=== PATIENT | male | born 1940 | race Caucasian/White ===

== ENCOUNTER 2019-04-02 19:49 | Inpatient (IN) | payer MEDICARE ==
[~2019-04-02] VITALS: Ht 165.1 cm; Wt 60.8 kg
--- NOTE | 2019-04-02 19:49 | NUR ---
ED Nurse Note: TORIE JJ 68 FROM HOME C/O FALL. HX OF FREQUENT FALLS. INJURY TO BILATERAL ARMS.
--- NOTE | 2019-04-02 20:00 | NUR ---
ED Nurse Note: IV ACCESS ESTABLISHED. BLOOD COLLECTED; SENT DOWN TO LAB.
--- NOTE | 2019-04-02 20:18 | NUR ---
ED Nurse Note: PT PRESENTS WITH SKIN TEARS ON BILATERAL ARMS AND ABRASION ON RIGHT KNEE.
[2019-04-02 20:24] VITALS: BP 142/83
[2019-04-02 20:33] LABS: BASOPHILS % (AUTO) 0.7 % (0.0-2.0); EOSINOPHILS % (AUTO) 1.3 % (0.0-3.0); HEMATOCRIT 32.3 % (42.0-52.0); HEMOGLOBIN 11.3 G/DL (14.2-18.0); MEAN CORPUSCULAR VOLUME 91 FL (80-99); MONOCYTES % (AUTO) 8.5 % (1.0-10.0); NEUTROPHILS % (AUTO) 71.5 % (45.0-75.0); PLATELET COUNT 137 K/UL (150-450); RED BLOOD COUNT 3.56 M/UL (4.70-6.10); RED CELL DISTRIBUTION WIDTH 11.8 % (11.6-14.8); WHITE BLOOD COUNT 5.7 K/UL (4.8-10.8)
--- NOTE | 2019-04-02 20:43 | Emergency Room Report ---
History of Present Illness General Chief Complaint: Multiple Trauma/Fall Source: Patient Present Illness HPI Patient is a 78-year-old male brought in by EMS after multiple falls. Patient had reportedly fallen 2 times at a friend's [employer]. He reportedly struck his head in the bathtub. He had prior history of Parkinson's dementia. Patient states that he has fallen 5 times in the past 1 day. He states he lives alone. He denies any anticoagulant use. Patient is followed by neurologist as well as urologist and a primary care physician. Patient states his primary care physician is Dr. Sandoval reports having a written recent tetanus vaccine. Allergies: Coded Allergies: No Known Allergies (Unverified , 04/02/19) Patient History Past Medical History: see triage record Reviewed Nursing Documentation: PMH: Agreed; PSxH: Agreed Nursing Documentation-PMH Past Medical History: No History, Except For Hx Hypertension: Yes Review of Systems All Other Systems: negative except mentioned in HPI Physical Exam Vital Signs Date Time Temp Pulse Resp B/P (MAP) Pulse Ox O2 Delivery O2 Flow Rate FiO2 04/02/19 19:33 97.5 84 14 142/83 (102) 99 Room Air Sp02 EP Interpretation: reviewed, normal General Appearance: normal inspection, well appearing, no apparent distress, GCS 15, Chronically Ill Head: atraumatic ENT: normal ENT inspection, hearing grossly normal, normal voice Neck: normal inspection, supple, no bony tend, limited range of motion Respiratory: normal inspection, lungs clear, normal breath sounds, no respiratory distress, no retraction, no wheezing Cardiovascular #1: regular rate, rhythm, no edema Gastrointestinal: normal inspection, normal bowel sounds, non tender, soft, no guarding, no hernia Genitourinary: no CVA tenderness Musculoskeletal: decreased range of motion - decreased rOM of neck and left shoulder Neurologic: normal inspection, alert, oriented x3, responsive, head tennis professional III-XII nml as tested, speech normal, other - muscular atrophy bilateral quadriceps Psychiatric: normal inspection, judgement/insight normal, mood/affect normal Skin: normal color, other - multiple superficial skin tears to extremities Medical Decision Making Diagnostic Impression: Primary Impression: Fall Additional Impressions: Cervical spine arthritis Parkinson disease Frequent falls Skin tear of left upper extremity Skin tear of right elbow without complication Dehydration ER Course Patient is a 78-year-old male brought in by EMS for fall. Differential diagnosis include was not limited to neuromuscular weakness, ataxia, cervical spine stenosis, Parkinson's dementia among others. Because of complexity of patient's case laboratory testing and imaging studies were ordered. Patient was noted to have some frequent falling episodes and states that he has had 5 falls in the past day. Patient states that he fell twice today at a libertarian including one episode where he struck his head. Patient was noted to have some skin tears to his upper extremities. He additionally had some injury to his right knee.CT of cervical spine read by radiology showed no acute fracture or traumatic subluxation of the cervical spine there is multilevel degenerative changes noted most prominently at C4C5 mild reversal of cervical lordosis may related to positioning degenerative changes or muscle spasm. CT of the head without contrast read by radiology showed no evidence of acute intracranial hemorrhage skull fracture or acute intracranial abnormality mild atrophy and chronic small vessel disease was noted. Chest x-ray 1 view interpreted by me showed normal cardiac size without evident infiltrate and some aortic calcification. There is no evident effusion. Patient was noted to have multiple falls and does not appear to be safe for discharge. Patient will be admitted to the hospital for further evaluation of unsteady gait. Patient will be admitted to Dr. Pate for inpatient management due to panel physician. Labs Test 04/02/19 20:00 04/02/19 20:15 White Blood Count 5.7 K/UL (4.8-10.8) Red Blood Count 3.56 M/UL (4.70-6.10) Hemoglobin 11.3 G/DL (14.2-18.0) Hematocrit 32.3 % (42.0-52.0) Mean Corpuscular Volume 91 FL (80-99) Mean Corpuscular Hemoglobin 31.7 PG (27.0-31.0) Mean Corpuscular Hemoglobin Concent 35.0 G/DL (32.0-36.0) Red Cell Distribution Width 11.8 % (11.6-14.8) Platelet Count 137 K/UL (150-450) Mean Platelet Volume 7.7 FL (6.5-10.1) Neutrophils (%) (Auto) 71.5 % (45.0-75.0) Lymphocytes (%) (Auto) 18.0 % (20.0-45.0) Monocytes (%) (Auto) 8.5 % (1.0-10.0) Eosinophils (%) (Auto) 1.3 % (0.0-3.0) Basophils (%) (Auto) 0.7 % (0.0-2.0) Prothrombin Time 10.3 SEC (9.30-11.50) Prothromb Time International Ratio 1.0 (0.9-1.1) Activated Partial Thromboplast Time 26 SEC (23-33) Sodium Level 142 MMOL/L (136-145) Potassium Level 3.8 MMOL/L (3.5-5.1) Chloride Level 104 MMOL/L (98-107) Carbon Dioxide Level 32 MMOL/L (21-32) Anion Gap 7 mmol/L (5-15) Blood Urea Nitrogen 30 mg/dL (7-18) Creatinine 1.1 MG/DL (0.55-1.30) Estimat Glomerular Filtration Rate mL/min (>60) Glucose Level 117 MG/DL (74-106) Calcium Level 8.9 MG/DL (8.5-10.1) Total Bilirubin 1.1 MG/DL (0.2-1.0) Direct Bilirubin 0.3 MG/DL (0.0-0.3) Aspartate Amino Transf (AST/SGOT) 44 U/L (15-37) Alanine Aminotransferase (ALT/SGPT) 15 U/L (12-78) Alkaline Phosphatase 77 U/L (46-116) Troponin I 0.016 ng/mL (0.000-0.056) Total Protein 6.3 G/DL (6.4-8.2) Albumin 3.7 G/DL (3.4-5.0) Globulin 2.6 g/dL Albumin/Globulin Ratio 1.4 (1.0-2.7) Thyroid Stimulating Hormone (TSH) 1.763 uiU/mL (0.358-3.740) Urine Color Yellow Urine Appearance Cloudy Urine pH 8 (4.5-8.0) Urine Specific [place] 1.010 (1.005-1.035) Urine Protein Negative (NEGATIVE) Urine Glucose (UA) Negative (NEGATIVE) Urine Ketones Negative (NEGATIVE) Urine Blood 4+ (NEGATIVE) Urine Nitrite Negative (NEGATIVE) Urine Bilirubin Negative (NEGATIVE) Urine Urobilinogen Normal MG/DL (0.0-1.0) Urine Leukocyte Esterase Negative (NEGATIVE) Urine RBC 15-20 /HPF (0 - 0) Urine WBC 0 /HPF (0 - 0) Urine Squamous Epithelial Cells None /LPF (NONE/OCC) Urine Amorphous Sediment Many /LPF (NONE) Urine Bacteria Few /HPF (NONE) Last Vital Signs Date Time Temp Pulse Resp B/P (MAP) Pulse Ox O2 Delivery O2 Flow Rate FiO2 04/02/19 20:24 97.5 73 14 142/83 99 Room Air Status: unchanged Disposition: ADMITTED INPATIENT Condition: Stable Raf Pack MD Apr 02, 2019 20:43
[2019-04-02 20:50] LABS: ANION GAP 7 mmol/L (5-15); BLOOD UREA NITROGEN 30 mg/dL (7-18); CALCIUM 8.9 MG/DL (8.5-10.1); CARBON DIOXIDE 32 MMOL/L (21-32); CHLORIDE 104 MMOL/L (98-107); CREATININE 1.1 MG/DL (0.55-1.30); POTASSIUM 3.8 MMOL/L (3.5-5.1); SODIUM 142 MMOL/L (136-145)
--- NOTE | 2019-04-02 20:55 | NUR ---
ED Nurse Note: URINE COLLECTED; SENT DOWN TO LAB.
[2019-04-02 21:03] LABS: ALANINE AMINOTRANSFERASE 15 U/L (12-78); ALBUMIN 3.7 G/DL (3.4-5.0); ALBUMIN/GLOBULIN RATIO 1.4 (1.0-2.7); ALKALINE PHOSPHATASE 77 U/L (46-116); ASPARTATE AMINO TRANSFERASE 44 U/L (15-37); BILIRUBIN,TOTAL 1.1 MG/DL (0.2-1.0)
[2019-04-02] MEDS ORDERED: ATORVASTATIN CA10 MG ORAL (21:06)
[2019-04-02] MEDS ORDERED: COZAAR25 MG ORAL (21:06)
[2019-04-02] MEDS ORDERED: ASPIR 8181 MG ORAL (21:06)
[2019-04-02] MEDS ORDERED: ELIQUIS2.5 MG PO (21:06)
[2019-04-02 21:08] LABS: BILIRUBIN,DIRECT 0.3 MG/DL (0.0-0.3)
--- NOTE | 2019-04-02 21:24 | NUR ---
ED Nurse Note: UPON REASSESSMENT, LEFTHIP ABRASION NOTED. WOUND PHOTOS TAKEN AND UPLOADED.
[2019-04-02 21:27] LABS: APPEARANCE,URINE CLOUDY; BILIRUBIN, URINE NEGATIVE (NEGATIVE); GLUCOSE, URINE (UA) NEGATIVE (NEGATIVE); KETONES,URINE NEGATIVE (NEGATIVE); LEUKOCYTE ESTERASE ,URINE NEGATIVE (NEGATIVE); NITRITE,URINE NEGATIVE (NEGATIVE); PH,URINE 8 (4.5-8.0); PROTEIN,URINE NEGATIVE (NEGATIVE); UROBILINOGEN,URINE NORMAL MG/DL (0.0-1.0)
[2019-04-02 21:29] LABS: COLOR,URINE YELLOW
[2019-04-02 22:15] VITALS: BP 137/71
--- NOTE | 2019-04-02 22:28 | NUR ---
ED Nurse Note: REPORT GIVEN TO JAYLENE THOMAS. ROOM NOT READY. RECEIVING RN WILL CALL BACK WITHIN THE HOUR. NURSING PLASTIC MOULD MAKER AND VICTIMS ADVOCATE CLERK/SPECIALIST AWARE.
--- NOTE | 2019-04-02 22:45 | NUR ---
TRANSFER TO FLOOR: Patient transferred to [facility] as ordered, per MD KENNETH. Report given to JAYLENE THOMAS. PATIENT AO4. NAD. VSS. ENDORSED WOUNDS AND FALL RISK TO RECEIVING RN. BELONGINGS LIST COMPLETED WITH RECEIVING RN.
--- NOTE | 2019-04-02 23:00 | NUR ---
NURSE NOTES: PATIENT ADMITTED FROM ER WITH ADM DX OF FREQUENT FALL UNDER PRIMARY DR COOPER. REPORT RECEIVED FROM TRAINMASTER KARIN SANTACRUZ. PLACED PATIENT NEXT TO NURSING STATION. PATIENT IS A/O X4, ON RA, NO SOB, NO ACUTE DISTRESS, DENIES PAIN. RFA IV INTACT, PATENT, SALINE LOCK. NOTED ABRASION ON L HIP AND R KNEE. SKIN TEAR ON BUE. DSG DRY AND INTACT. BELONGINGS CHECKED. ORIENTED PATIENT TO SURROUNDINGS. BED IN LOWEST POSITION, LOCKED, ALARMS ON. CALL LIGHT IN REACH.
[2019-04-03] VITALS: BP 122/69
[2019-04-03 04:00] VITALS: BP 124/68
[2019-04-03 06:35] LABS: BASOPHILS % (AUTO) 1.1 % (0.0-2.0); HEMATOCRIT 30.9 % (42.0-52.0); HEMOGLOBIN 10.7 G/DL (14.2-18.0); LYMPHOCYTES % (AUTO) 24.6 % (20.0-45.0); MEAN CORPUSCULAR VOLUME 96 FL (80-99); MONOCYTES % (AUTO) 12.2 % (1.0-10.0); NEUTROPHILS % (AUTO) 58.1 % (45.0-75.0); PLATELET COUNT 117 K/UL (150-450); RED BLOOD COUNT 3.23 M/UL (4.70-6.10); RED CELL DISTRIBUTION WIDTH 12.3 % (11.6-14.8); WHITE BLOOD COUNT 3.8 K/UL (4.8-10.8)
--- NOTE | 2019-04-03 07:35 | NUR ---
HAND-OFF: Report given to Beth MARIEE.
--- NOTE | 2019-04-03 08:00 | NUR ---
NURSE NOTES: Patient is awake and alert and oriented ,respirations are unlabored. patient sitting up in bed and eating breakfast.HOB is elevated. Pharmacy called earlier to verify if patient takes medication called Eliquis.Patient state he does not take Eliquis.CANOPY STRINGER Marlen here to see patient and going over patient history in patient room and noted that patient state he does not take Eliquis.Bed alarm is on,call light within reach.
--- NOTE | 2019-04-03 08:20 | NUR ---
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 DEHYDRATION VS: BP 142/83, P 84, T 97.5, RR 14, SpO2 99 RBC 3.56, H&H 11.3/32.3, BUN 30 IS:NS 500ml IV ADMITTED TO MED/SURG DCP:RETURN HOME
[2019-04-03] MEDS: Aspirin EC 81mg tab ORAL SCH (08:35)
[2019-04-03] MEDS: Losartan 25mg tab ORAL SCH (08:35)
[2019-04-03 08:39] VITALS: BP 124/78
[2019-04-03] MEDS ORDERED: Eliquis 2.5mg tablet ORAL SCH (09:00)
--- NOTE | 2019-04-03 10:10 | NUR ---
PT EVALUATION NOTE Patient seen for initial evaluation, see complete evaluation for details. Patient presents with generalized weakness and impaired balance which affects patient's ability to perform mobility tasks. Patient requires min assist for bed mobility, transfers and ambulation 5 ft with FWW with poor balance. Patient will benefit from skilled inpatient PT intervention to address strength, balance, safety and functional mobility. Recommend discharge to ARU/SNF for continued rehab vs home with home PT depending on patient's progress once medically cleared by MD. Recommend assistance at home as patient lives alone in a 2 story house. Patient has a SPC and 4 wheeled walker at home. Addendum: 04/03/19 at 1137 by LAISHA CASTILLO PT Amended: Links added.
--- NOTE | 2019-04-03 10:36 | Diagnostic Imaging Report ---
Indication: Head trauma headache Technique: Contiguous 5 mm thick transaxial imaging of the head obtained in a Siemens Sensation [address] scanner. Soft tissue and bone windows generated. Automatic Exposure Control was utilized. Total Dose length Product (DLP): 1305.[address] Dose Index Volume (CTDIvol): 70.38 mGy Comparison: none Findings: There is mild prominence of the ventricles, basal cisterns, and cerebral sulci consistent with atrophy. Mild, nonspecific, white matter hypoattenuation is noted throughout the brain consistent with chronic small vessel disease. There is no midline shift, edema, acute hemorrhage, mass effect, or abnormal extra-axial fluid collections. Bones are unremarkable. Bilateral cataract surgery noted. Impression: No acute intracranial bleed, mass effect or edema. Mild atrophy of the brain. Nonspecific white matter hypoattenuation probably due to chronic small vessel disease. [facility] has communicated the preliminary results to the Emergency Department. Their findings are largely concordant with this report. The CT scanner at [facility] is accredited by the [employer] and the scans are performed using dose optimization techniques as appropriate to a performed exam including Automatic Exposure control.
--- NOTE | 2019-04-03 10:49 | Diagnostic Imaging Report ---
Indication: Neck pain. Technique: Continuous helical imaging of the cervical spine was obtained transaxially from the skull base to the upper thoracic spine. 2-D coronal and sagittal reformatted images were obtained. Automatic Exposure Control was utilized. Total Dose length Product (DLP): 255.[address] Dose Index Volume (CTDIvol): 12.59 mGy Comparison: None Findings: There is no acute fracture or malalignment identified. There is no soft tissue swelling identified. Moderate uncovertebral arthritis is demonstrated at multiple levels. Some of the intervertebral discs show narrowing and osteophytes. There is a mild anterolisthesis at C2-3. Minimal retrolisthesis noted at C4-5 and C5-6. Multilevel foraminal stenosis demonstrated due to uncovertebral spur formation. Impression: No acute injury Moderate spondylosis The CT scanner at [facility] is accredited by the [employer] and the scans are performed using dose optimization techniques as appropriate to a performed exam including Automatic Exposure control.
[2019-04-03 12:31] VITALS: BP 129/68
--- NOTE | 2019-04-03 12:32 | Consultation ---
Consult Note Consult Note Hematology/ Oncology Consultation Date of Consultation: 04/03/2019 Tiki MD: Dr. Dulce Cooney Reason For Referral: Leukopenia History of Present Illness: This is a Male 78-year-old male brought in by EMS after multiple falls. Patient had reportedly fallen 2 times at a friend's alliance party. He reportedly struck his head in the bathtub. He had prior history of Parkinson's dementia, Prostate cancer, Dementia, HTN. Patient states that he has fallen 5 times in the past 1 day. He states he lives alone. He denies any anticoagulant use, however Eliquis was reported in his med recon list. Patient is followed by neurologist as well as urologist for his prostate ca Dr.M. Lemus in [place]. He has not received Chemo or radiation and he does not recall his last PSA level. He states he was diagnosed 1 year ago. Heme/ Onc was consulted for low wbc count, pt also has thrombocytopenia. Past Medical History: Prostate CA, Dementia, Parkinsons disease, multiple falls Past Surgical History: Prostate Surgery Family History: Non Contributory Social History: Denies smoking tobacco, no etoh and no drug abuse, Allergies: NKDA Review of Systems All Other Systems: negative except mentioned in HPI Physical Exam General Appearance: , Chronically Ill appearing multiple dressings on BUE Head: atraumatic ENT: normal ENT inspection, hearing grossly normal, normal voice Neck: normal inspection, supple, no bony tend, limited range of motion Respiratory: normal inspection, lungs clear, normal breath sounds, no respiratory distress, no retraction, no wheezing Cardiovascular: regular rate, rhythm, no edema Gastrointestinal: normal inspection, normal bowel sounds, non tender, soft, no guarding, no hernia Genitourinary: no CVA tenderness Musculoskeletal: decreased range of motion - decreased rOM of neck and left shoulder Neurologic: normal inspection, alert, oriented x3, responsive, power systems engineer III-XII nml as tested, speech normal, other - muscular atrophy bilateral quadriceps Psychiatric: normal inspection, judgement/insight normal, mood/affect normal Skin: normal color, other - multiple superficial skin tears to extremities and steristrips to left foreaem Assessment/Plan ASSESSMENT AND REC'S 1. Prostate Ca --> followed by outpatient Urologist Santos Lr, I have called his office and have requested last prognosis requiring treatment and last PSA level. --> We will check PSA level --> Pt reports no history of chemo or radiation, he does report having prostate surgery unable to recall details. 2. Thrombocytopenia - potential causes multifactorial, evaluate liver and viral etiologies to begin, also could be related to underlying medications patient has received. --> Hep panel and HIV ordered --> US abd to evaluate for cirrhosis and hsm ordered --> Peripheral smear ordered to evaluate for blasts /schistocytes --> abx and other meds have been reviewed --> ok for ppx if plt >50k w/ either heparin or lovenox --> Transfuse if Plt < 20k and fever, or if Plt < 10k without fever 3. Leukopenia--multiple etiologies could be related to Prostate Ca or underlying liver disease, medication-induced, --> peripheral smear has been ordered --> Medications have been reviewed --> Continue to monitor for improvement, trend cbc --> Hep panel and HIV have been ordered --> US abd ordered to r/o cirrhosis and hepatosplenomegaly --> reverse isolation if ANC is <2000 --> Give neupogen if ANC <1000 4. Anemia of chronic disease (or of iron deficiency) due to underlying chronic medical issues, multifactorial --> Anemia workup has been ordered, --> No evidence of hemolysis is noted, peripheral smear has been reviewed. --> Hgb goal >7. Transfuse prn. --> HGB trend 10.7 --> Epogen or iron at this time is not particularly indicated --> Medications have been reviewed, med recon Eliquis but patient denies taking eliquis also have discussed with bedside RN 5. Parkinsons Disease 6. Dementia 7. Multiple Falss --> CT head no actue pathology noted 8. Moderate spondylosis --> CT Cervical Spine reviewed The timing of this note does not necessarily reflect the time of the patient was seen. GREATLY APPRECIATE CONSULTATION Rupinder Gee NP Apr 03, 2019 12:32
--- NOTE | 2019-04-03 12:38 | Diagnostic Imaging Report ---
Indication: Dyspnea Comparison: None A single view chest radiograph was obtained. Findings: No definite infiltrate or pulmonary vascular congestion identified. The heart is normal size. The aorta is mildly enlarged consistent with atherosclerotic vascular disease. The bones are osteopenic. Impression: No acute disease
[2019-04-03 16:00] VITALS: BP 126/80
--- NOTE | 2019-04-03 16:03 | NUR ---
Social Service Note Patient with multiple falls at home. GALO spoke with patient's friend Tyesha Chavez [phone] who was present when EMS was called. Per Tyesha patient has never been and has no children. Patient has been involved with the a [employer] group for several years and monthly they have a [employer] tournament. Patient's friend Tyesha states when she went to patient's home to pick him up she noticed blood in various rooms in the house. Patient has a two story home. Patient admits to falling multiple times over the course of several weeks. A friend has purchased him a FWW a week ago. Patient was to have an interview with a caregiver agency today Wednesday to determine level of service he would require at home. While at the [employer] patient fell 3 times and ambulance was called. Tyesha states but takes multiple medications for Parkinson's disease and prostate cancer. Tyesha also provided the phone number of Phillip Loaiza [phone] a long time friend who is assisting patient in obtaining an executor of his estate. Message left. Tyesha states the group have been discussing SNF placement and assisted living. Patient has obtained information on [facility]. Patient is anticipated to discharge to SNF for continued rehab upon discharge. Will continue to monitor and assist as needed.
--- NOTE | 2019-04-03 16:54 | Diagnostic Imaging Report ---
Indication: Abdominal pain Technique: Grayscale and duplex Doppler imaging of the abdomen performed. Comparison: None Findings: The liver is notable for cyst in the left lobe measuring 1.2 cm. Doppler interrogation of the main portal vein shows patency with hepatopedal, monophasic flow. There is no biliary ductal dilatation identified. The CBD measures 2.5 mm. The spleen is unremarkable. Gallbladder is unremarkable. No gallstones or wall thickening identified. Sonographic Palacios's sign was negative per technologist. There demonstrated part of the pancreas, aorta and IVC show no definite abnormalities. Both kidneys appear unremarkable. There is no hydronephrosis. There is a small left renal cyst. IMPRESSION: No acute findings identified. Liver and left renal cyst
--- NOTE | 2019-04-03 19:40 | NUR ---
HAND-OFF: Report given to James MARIEE.
--- NOTE | 2019-04-03 19:56 | NUR ---
NURSE NOTES: Patient resting,sitting up in bed ,bed alarm on ,call light within reach.
[2019-04-03 20:00] VITALS: BP 121/74
--- NOTE | 2019-04-03 20:00 | NUR ---
NURSE NOTES: Received a patient sitting in bed. Patient AAO x 4, on room air. No acute distress noted at this time. IV R AC 18G intact. Patient has multiple skin tears both R, L arms and abrasion L hip and knee. Patient stated "Theses tears are from frequent falls." Bed alarm on, lowest position, locked, side rails up x 2, call light within reach. Will continue to monitor.
--- NOTE | 2019-04-03 20:30 | NUR ---
NURSE NOTES: Patient stated that he takes other medications at home that was not continued here. Patient is unsure of dosage of these medications. Called his pharmacy [facility] at and . Able to obtain only some of his medications that were dispensed recently: Vesicare 10mg Daily, myrbetriq 50mg daily, losartan 50mg 2xdaily, carbidopa/levodopa/encatapone 37.5/150/200 4x daily. Medication reconciliation updated as is. Called Dr. Cooney's exchange for orders to continue these medications. Awaiting call back.
--- NOTE | 2019-04-03 21:06 | History and Physical ---
History of Present Illness General Date patient seen: Apr 03, 2019 Time patient seen: 10:00 Reason for Hospitalization: Multiple Trauma/Fall Present Illness HPI 78 year old male with PMH of parkinsons, dementia, HTN, prostate CA presented with complaints of multiple falls. Pt states he had fallen 2 times at a friends [employer] over the weekend, states he struck his head on a bathtub, - LOC. Pt states he has fallen at least 5 times over past week. Pt lives by himself in a 2 story home and has no help. Pt would like to ask his friends for help vs bring placed in SNF. pt denies fevers, chills, N/V/C/D, urinary complaints or abdominal complaints. Patient is followed by neurologist as well as urologist for his prostate ca Dr.M. Lemus in [place]. He has not received Chemo or radiation and he does not recall his last PSA level. He states he was diagnosed 1 year ago. Heme/ Onc was consulted for low wbc count, pt also has thrombocytopenia. Allergies: Coded Allergies: No Known Allergies (Unverified , 04/02/19) Medication History Scheduled Aspirin* (Aspir 81*), 81 MG ORAL DAILY, (Reported) Atorvastatin Calcium* (Lipitor*), Unknown Dose ORAL BEDTIME, (Reported) Losartan Potassium* (Cozaar*), Unknown Dose ORAL DAILY, (Reported) Miscellaneous Medications Apixaban (Eliquis), Unknown Dose PO, (Reported) Patient History Healthcare decision maker Resuscitation status Full Code Advanced Directive on File Review of Systems Constitutional: Reports: no symptoms Eye: Reports: no symptoms ENT: Reports: no symptoms Respiratory: Reports: no symptoms Cardiovascular: Reports: no symptoms Gastrointestinal: Reports: no symptoms Genitourinary: Reports: no symptoms Musculoskeletal: Reports: no symptoms Skin: Reports: no symptoms Psychiatric: Reports: no symptoms Neurological: Reports: no symptoms Endocrine: Reports: no symptoms Physical Exam General Appearance: WD/WN, no apparent distress Lines, tubes and drains: peripheral HEENT: normocephalic, atraumatic, anicteric Neck: non-tender, normal alignment Respiratory/Chest: chest wall non-tender, lungs clear Cardiovascular/Chest: normal peripheral pulses Abdomen: normal bowel sounds, non tender, soft Extremities: normal range of motion Skin Exam: other - excoriations on b/l UE Neurologic: records tech II-XII grossly normal Musculoskeletal: normal muscle bulk Last 24 Hour Vital Signs Date Time Temp Pulse Resp B/P (MAP) Pulse Ox O2 Delivery O2 Flow Rate FiO2 04/03/19 16:00 98.0 70 18 126/80 (95) 98 04/03/19 12:31 97.6 69 18 129/68 (88) 98 04/03/19 09:00 Room Air 04/03/19 08:39 97.9 74 124/78 (93) 98 04/03/19 08:35 124/78 04/03/19 04:00 97.6 61 18 124/68 (86) 98 04/03/19 00:00 97.2 63 19 122/69 (86) 95 04/02/19 23:20 Room Air 04/02/19 22:46 97.5 66 14 137/71 99 Room Air 04/02/19 22:15 97.5 66 14 137/71 99 Room Air Intake and Output 04/02/19 04/03/19 19:00 07:00 Intake Total 370 ml Output Total 600 ml Balance -230 ml Intake Oral 370 ml Output Urine Total 600 ml Laboratory Tests Test 04/03/19 05:50 White Blood Count 3.8 K/UL (4.8-10.8) L Red Blood Count 3.23 M/UL (4.70-6.10) L Hemoglobin 10.7 G/DL (14.2-18.0) L Hematocrit 30.9 % (42.0-52.0) L Mean Corpuscular Volume 96 FL (80-99) Mean Corpuscular Hemoglobin 33.1 PG (27.0-31.0) H Mean Corpuscular Hemoglobin Concent 34.6 G/DL (32.0-36.0) Red Cell Distribution Width 12.3 % (11.6-14.8) Platelet Count 117 K/UL (150-450) L Mean Platelet Volume 9.5 FL (6.5-10.1) Neutrophils (%) (Auto) 58.1 % (45.0-75.0) Lymphocytes (%) (Auto) 24.6 % (20.0-45.0) Monocytes (%) (Auto) 12.2 % (1.0-10.0) H Eosinophils (%) (Auto) 4.0 % (0.0-3.0) H Basophils (%) (Auto) 1.1 % (0.0-2.0) Prostate Specific Antigen 0.85 ng/mL (0.13-4.0) Hepatitis A IgM Antibody Pending Hepatitis B Surface Antigen Pending Hepatitis B Core IgM Antibody Pending Hepatitis C Antibody Pending HIV-1 Antibody Pending HIV-2 Antibody Pending HIV (1&2) Antibody Rapid Preliminary positive Height (Feet): 5 Height (Inches): 5.00 Weight (Pounds): 135 Medications Current Medications Medications (Trade) Dose Ordered Sig/Radha Route PRN Reason Start Time Stop Time Status Last Admin Dose Admin Aspirin (Ecotrin) 81 mg DAILY ORAL 04/03/19 09:00 05/03/19 08:59 04/03/19 08:35 Atorvastatin Calcium (Lipitor) 10 mg BEDTIME ORAL 04/03/19 21:00 05/03/19 20:59 Losartan Potassium (Cozaar) 25 mg DAILY ORAL 04/03/19 09:00 05/03/19 08:59 04/03/19 08:35 Assessment/Plan Assessment/Plan: 78 year old male with PMH of parkinsons, HTN, and dementia presented with complaints of multiple falls. #Frequent falls -fall precautions -PT/OT -Likely will need placement #Recent head trauma -Head CT unremarkbale #HTN -Restart ENVIRONMENTAL REMEDIATION CONSULTANT meds as needed #Dementia -Neurology consulted Code: Lower In Supervisor of note may not reflect time of encounter Sharon De La Cruz MD Apr 03, 2019 21:06
[2019-04-03] MEDS ORDERED: CARBIDOPA-LEVO1 EA16 PO (21:39)
[2019-04-03] MEDS ORDERED: MYRBETRIQ50 MG PO (21:52)
[2019-04-03] MEDS ORDERED: VESICARE10 MG ORAL (21:52)
[2019-04-04] VITALS: BP 127/64
--- NOTE | 2019-04-04 00:10 | NUR ---
NURSE NOTES: Patient was assisted to commode, had normal/formed BM, stool collected and sent to lab.
[2019-04-04 04:00] VITALS: BP 134/70
--- NOTE | 2019-04-04 07:20 | NUR ---
HAND-OFF: Report given to JAYLENE Campos.
--- NOTE | 2019-04-04 07:37 | NUR ---
NURSE NOTES: Patient is awake and alert and oriented,respirations are unlabored.Patient sitting up in bed and eating breakfast.No complaints at this time.Call light within reach,bed alarm is on.
[2019-04-04 08:15] VITALS: BP 134/71
[2019-04-04] MEDS: Aspirin EC 81mg tab ORAL SCH (08:27)
[2019-04-04] MEDS: Losartan 25mg tab ORAL SCH (08:27)
[2019-04-04 12:00] VITALS: BP 128/71
[2019-04-04 16:00] VITALS: BP 142/90
--- NOTE | 2019-04-04 18:28 | Hematology/Onc Progress Note ---
Assessment/Plan Assessment/Plan Assessment/Plan ASSESSMENT AND REC'S 1. Prostate Ca --> followed by outpatient Urologist Santos Lr, I have called his office and have requested last prognosis requiring treatment and last PSA level. --> We will check PSA level --> Pt reports no history of chemo or radiation, he does report having prostate surgery unable to recall details. 2. Thrombocytopenia - potential causes multifactorial, evaluate liver and viral etiologies to begin, also could be related to underlying medications patient has received. --> Hep panel and HIV ordered --> US abd to evaluate for cirrhosis and hsm ordered --> Peripheral smear ordered to evaluate for blasts /schistocytes --> abx and other meds have been reviewed --> ok for ppx if plt >50k w/ either heparin or lovenox --> Transfuse if Plt < 20k and fever, or if Plt < 10k without fever 3. Leukopenia--multiple etiologies could be related to Prostate Ca or underlying liver disease, medication-induced, --> peripheral smear has been ordered --> Medications have been reviewed --> Continue to monitor for improvement, trend cbc --> Hep panel and HIV have been ordered --> US abd ordered to r/o cirrhosis and hepatosplenomegaly --> reverse isolation if ANC is <2000 --> Give neupogen if ANC <1000 4. Anemia of chronic disease (or of iron deficiency) due to underlying chronic medical issues, multifactorial --> Anemia workup has been ordered, --> No evidence of hemolysis is noted, peripheral smear has been reviewed. --> Hgb goal >7. Transfuse prn. --> HGB trend 10.7 --> Epogen or iron at this time is not particularly indicated --> Medications have been reviewed, med recon Eliquis but patient denies taking eliquis also have discussed with bedside RN 5. Parkinsons Disease 6. Dementia 7. Multiple Falss --> CT head no actue pathology noted 8. Moderate spondylosis --> CT Cervical Spine reviewed The timing of this note does not necessarily reflect the time of the patient was seen. GREATLY APPRECIATE CONSULTATION Subjective Allergies: Coded Allergies: No Known Allergies (Unverified , 04/02/19) Subjective 04/04: Pt is awake in bed resting, alert Objective Objective Current Medications Medications (Trade) Dose Ordered Sig/Radha Route PRN Reason Start Time Stop Time Status Last Admin Dose Admin Aspirin (Ecotrin) 81 mg DAILY ORAL 04/03/19 09:00 05/03/19 08:59 04/04/19 08:27 Atorvastatin Calcium (Lipitor) 10 mg BEDTIME ORAL 04/03/19 21:00 05/03/19 20:59 04/03/19 21:44 Carbidopa/Levodopa (Sinemet 25/100) 1.5 tab FOUR TIMES A DAY ORAL 04/04/19 18:00 05/04/19 17:59 Entacapone (Comtan) 200 mg FOUR TIMES A DAY ORAL 04/04/19 18:00 05/04/19 17:59 Losartan Potassium (Cozaar) 50 mg BID ORAL 04/04/19 18:00 05/04/19 17:59 Last 24 Hour Vital Signs Date Time Temp Pulse Resp B/P (MAP) Pulse Ox O2 Delivery O2 Flow Rate FiO2 04/04/19 16:00 97.9 74 18 142/90 (107) 99 04/04/19 12:00 97.8 66 18 128/71 (90) 98 04/04/19 09:00 Room Air 04/04/19 08:27 134/71 04/04/19 08:15 96.2 63 18 134/71 (92) 96 04/04/19 04:00 98.4 72 16 134/70 (91) 97 04/04/19 00:00 98.1 63 18 127/64 (85) 97 04/03/19 21:00 Room Air 04/03/19 20:00 98.0 70 18 121/74 (90) 96 04/03/19 16:00 98.0 70 18 126/80 (95) 98 04/03/19 12:31 97.6 69 18 129/68 (88) 98 04/03/19 09:00 Room Air 04/03/19 08:39 97.9 74 124/78 (93) 98 04/03/19 08:35 124/78 04/03/19 04:00 97.6 61 18 124/68 (86) 98 04/03/19 00:00 97.2 63 19 122/69 (86) 95 04/02/19 23:20 Room Air 04/02/19 22:46 97.5 66 14 137/71 99 Room Air 04/02/19 22:15 97.5 66 14 137/71 99 Room Air 04/02/19 20:24 97.5 73 14 142/83 99 Room Air 04/02/19 20:24 73 14 Room Air 04/02/19 19:33 97.5 84 14 142/83 (102) 99 Room Air Intake and Output 04/03/19 04/04/19 19:00 07:00 Intake Total 980 ml Balance 980 ml Intake Oral 980 ml # Voids 4 4 # Bowel Movements 1 2 Labs Test 04/02/19 20:00 04/02/19 20:15 04/03/19 05:50 04/04/19 03:00 White Blood Count 5.7 K/UL (4.8-10.8) 3.8 K/UL (4.8-10.8) Red Blood Count 3.56 M/UL (4.70-6.10) 3.23 M/UL (4.70-6.10) Hemoglobin 11.3 G/DL (14.2-18.0) 10.7 G/DL (14.2-18.0) Hematocrit 32.3 % (42.0-52.0) 30.9 % (42.0-52.0) Mean Corpuscular Volume 91 FL (80-99) 96 FL (80-99) Mean Corpuscular Hemoglobin 31.7 PG (27.0-31.0) 33.1 PG (27.0-31.0) Mean Corpuscular Hemoglobin Concent 35.0 G/DL (32.0-36.0) 34.6 G/DL (32.0-36.0) Red Cell Distribution Width 11.8 % (11.6-14.8) 12.3 % (11.6-14.8) Platelet Count 137 K/UL (150-450) 117 K/UL (150-450) Mean Platelet Volume 7.7 FL (6.5-10.1) 9.5 FL (6.5-10.1) Neutrophils (%) (Auto) 71.5 % (45.0-75.0) 58.1 % (45.0-75.0) Lymphocytes (%) (Auto) 18.0 % (20.0-45.0) 24.6 % (20.0-45.0) Monocytes (%) (Auto) 8.5 % (1.0-10.0) 12.2 % (1.0-10.0) Eosinophils (%) (Auto) 1.3 % (0.0-3.0) 4.0 % (0.0-3.0) Basophils (%) (Auto) 0.7 % (0.0-2.0) 1.1 % (0.0-2.0) Prothrombin Time 10.3 SEC (9.30-11.50) Prothromb Time International Ratio 1.0 (0.9-1.1) Activated Partial Thromboplast Time 26 SEC (23-33) Sodium Level 142 MMOL/L (136-145) Potassium Level 3.8 MMOL/L (3.5-5.1) Chloride Level 104 MMOL/L (98-107) Carbon Dioxide Level 32 MMOL/L (21-32) Anion Gap 7 mmol/L (5-15) Blood Urea Nitrogen 30 mg/dL (7-18) Creatinine 1.1 MG/DL (0.55-1.30) Estimat Glomerular Filtration Rate mL/min (>60) Glucose Level 117 MG/DL (74-106) Calcium Level 8.9 MG/DL (8.5-10.1) Total Bilirubin 1.1 MG/DL (0.2-1.0) Direct Bilirubin 0.3 MG/DL (0.0-0.3) Aspartate Amino Transf (AST/SGOT) 44 U/L (15-37) Alanine Aminotransferase (ALT/SGPT) 15 U/L (12-78) Alkaline Phosphatase 77 U/L (46-116) Troponin I 0.016 ng/mL (0.000-0.056) Total Protein 6.3 G/DL (6.4-8.2) Albumin 3.7 G/DL (3.4-5.0) Globulin 2.6 g/dL Albumin/Globulin Ratio 1.4 (1.0-2.7) Thyroid Stimulating Hormone (TSH) 1.763 uiU/mL (0.358-3.740) Urine Color Yellow Urine Appearance Cloudy Urine pH 8 (4.5-8.0) Urine Specific [place] 1.010 (1.005-1.035) Urine Protein Negative (NEGATIVE) Urine Glucose (UA) Negative (NEGATIVE) Urine Ketones Negative (NEGATIVE) Urine Blood 4+ (NEGATIVE) Urine Nitrite Negative (NEGATIVE) Urine Bilirubin Negative (NEGATIVE) Urine Urobilinogen Normal MG/DL (0.0-1.0) Urine Leukocyte Esterase Negative (NEGATIVE) Urine RBC 15-20 /HPF (0 - 0) Urine WBC 0 /HPF (0 - 0) Urine Squamous Epithelial Cells None /LPF (NONE/OCC) Urine Amorphous Sediment Many /LPF (NONE) Urine Bacteria Few /HPF (NONE) Prostate Specific Antigen 0.85 ng/mL (0.13-4.0) Hepatitis A IgM Antibody Negative (Negative) Hepatitis B Surface Antigen Negative (Negative) Hepatitis B Core IgM Antibody Negative (Negative) Hepatitis C Antibody <0.1 s/co ratio HIV (1&2) Antibody Rapid Preliminary positive Stool Occult Blood Negative (NEGATIVE) Height (Feet): 5 Height (Inches): 5.00 Weight (Pounds): 135 Objective Physical Exam General Appearance: , Chronically Ill appearing multiple dressings on BUE Head: atraumatic ENT: normal ENT inspection, hearing grossly normal, normal voice Neck: normal inspection, supple, no bony tend, limited range of motion Respiratory: normal inspection, lungs clear, normal breath sounds, no respiratory distress, no retraction, no wheezing Cardiovascular: regular rate, rhythm, no edema Gastrointestinal: normal inspection, normal bowel sounds, non tender, soft, no guarding, no hernia Genitourinary: no CVA tenderness Musculoskeletal: decreased range of motion - decreased rOM of neck and left shoulder Neurologic: normal inspection, alert, oriented x3, responsive, consultative sales associate III-XII nml as tested, speech normal, other - muscular atrophy bilateral quadriceps Psychiatric: normal inspection, judgement/insight normal, mood/affect normal Skin: normal color, other - multiple superficial skin tears to extremities and steristrips to left foreaem Francis Keane MD Apr 04, 2019 18:28
[2019-04-04] MEDS: Losartan 50mg tab ORAL SCH (18:49)
[2019-04-04] MEDS: Levodopa/Carbidopa 25/100 tab ORAL SCH ×2 (18:50→22:29)
[2019-04-04] MEDS: Entacapone 200mg tab ORAL SCH ×2 (18:50→22:29)
--- NOTE | 2019-04-04 19:00 | NUR ---
NURSE NOTES: Patient resting,bed alarm on,call light within reach.
--- NOTE | 2019-04-04 19:04 | General Progress Note ---
Assessment/Plan Assessment/Plan: 78 year old male with PMH of parkinsons, HTN, and dementia presented with complaints of multiple falls. #Frequent falls -fall precautions -PT/OT -Likely will need placement #Prelim HIV + -pending confirmatory testing #Recent head trauma -Head CT unremarkbale #HTN -Restart WEB WEAVER meds as needed #Dementia -Neurology consulted Code: Rn Imaging of note may not reflect time of encounter Subjective Date patient seen: Apr 04, 2019 Allergies: Coded Allergies: No Known Allergies (Unverified , 04/02/19) Subjective No acute overnight events, prelim HIV+, pending confirmation test. pt with no complaints, Objective Last 24 Hour Vital Signs Date Time Temp Pulse Resp B/P (MAP) Pulse Ox O2 Delivery O2 Flow Rate FiO2 04/04/19 18:49 139/76 04/04/19 16:00 97.9 74 18 142/90 (107) 99 04/04/19 12:00 97.8 66 18 128/71 (90) 98 04/04/19 09:00 Room Air 04/04/19 08:27 134/71 04/04/19 08:15 96.2 63 18 134/71 (92) 96 04/04/19 04:00 98.4 72 16 134/70 (91) 97 04/04/19 00:00 98.1 63 18 127/64 (85) 97 04/03/19 21:00 Room Air 04/03/19 20:00 98.0 70 18 121/74 (90) 96 Intake and Output 04/03/19 04/04/19 19:00 07:00 Intake Total 980 ml Balance 980 ml Intake Oral 980 ml # Voids 4 4 # Bowel Movements 1 2 Laboratory Tests 04/04/19 03:00: Stool Occult Blood Negative Height (Feet): 5 Height (Inches): 5.00 Weight (Pounds): 135 Objective General Appearance: WD/WN, no apparent distress Lines, tubes and drains: peripheral HEENT: normocephalic, atraumatic, anicteric Neck: non-tender, normal alignment Respiratory/Chest: chest wall non-tender, lungs clear Cardiovascular/Chest: normal peripheral pulses Abdomen: normal bowel sounds, non tender, soft Extremities: normal range of motion Skin Exam: other - excoriations on b/l UE Neurologic: kiln tender II-XII grossly normal Musculoskeletal: normal muscle bulk Sharon De La Cruz MD Apr 04, 2019 19:04
--- NOTE | 2019-04-04 19:33 | NUR ---
HAND-OFF: Report given to Michelle MARIEE.
--- NOTE | 2019-04-04 19:55 | NUR ---
NURSE NOTES: Received report from JAYLENE Campos. Patient A&Ox4. On room air. No signs of distress or labored breathing. IV intact, patent, and saline locked. Bed in lowest position with call light in reach. Will continue with plan of care.
[2019-04-04 20:00] VITALS: BP 126/70
[2019-04-04] MEDS ORDERED: ROPINIROLE HCL12 MG PO (21:47)
[2019-04-04] MEDS ORDERED: AZILECT1 MG PO (21:47)
[2019-04-04] MEDS ORDERED: SYMMETREL100 MG PO (21:47)
[2019-04-05] VITALS: BP 135/74
[2019-04-05 04:00] VITALS: BP 137/81
--- NOTE | 2019-04-05 07:45 | NUR ---
HAND-OFF: Report given to JAYLENE Farr.
[2019-04-05 08:00] VITALS: BP 135/77
--- NOTE | 2019-04-05 08:04 | NUR ---
NURSE NOTES: received report from JAYLENE Meyers. patient in bed. alert. oriented. verbally responsive. no respiratory distress noted. no c/o pain at this time. fall risk. bedside comode and urinal in place. IV on RAC intact. bed in the lowest position. call light within reach. alarm on. will provide plan of care.
[2019-04-05] MEDS: Amantadine 100mg cap ORAL SCH ×2 (08:32→17:45)
[2019-04-05] MEDS: Docusate 100mg cap ORAL SCH (08:32)
[2019-04-05] MEDS: Aspirin EC 81mg tab ORAL SCH (08:32)
[2019-04-05] MEDS: Losartan 50mg tab ORAL SCH ×2 (08:32→17:45)
[2019-04-05] MEDS: Solifenacin 10mg tab ORAL SCH (08:33)
[2019-04-05] MEDS: RASAGILINE 1 MG ORAL SCH (09:42)
[2019-04-05] MEDS: CARBIDOPA ORAL SCH ×4 (09:42→21:10)
[2019-04-05] MEDS: LEVODOPA ORAL SCH ×4 (09:42→21:10)
[2019-04-05] MEDS: MYRBETRIQ 50 MG ORAL SCH (09:42)
[2019-04-05] MEDS: ROPINIROLE 12 MG ORAL SCH (09:42)
[2019-04-05] MEDS: ENTACAPONE ORAL SCH ×4 (09:42→21:10)
[2019-04-05 12:00] VITALS: BP 97/59
--- NOTE | 2019-04-05 14:14 | Hematology/Onc Progress Note ---
Assessment/Plan Assessment/Plan Assessment/Plan ASSESSMENT AND REC'S 1. Prostate Ca --> followed by outpatient Urologist Santos Lr, I have called his office and have requested last prognosis requiring treatment and last PSA level. --> We will check PSA level - results pending --> Pt reports no history of chemo or radiation, he does report having prostate surgery unable to recall details. 2. Thrombocytopenia - potential causes multifactorial, evaluate liver and viral etiologies to begin, also could be related to underlying medications patient has received. --> Hep panel and HIV ordered --> US abd to evaluate for cirrhosis and hsm ordered --> Peripheral smear ordered to evaluate for blasts /schistocytes --> abx and other meds have been reviewed --> ok for ppx if plt >50k w/ either heparin or lovenox --> Transfuse if Plt < 20k and fever, or if Plt < 10k without fever 3. Leukopenia--multiple etiologies could be related to Prostate Ca or underlying liver disease, medication-induced, --> peripheral smear has been ordered --> Medications have been reviewed --> Continue to monitor for improvement, trend cbc --> Hep panel and HIV have been ordered --> US abd ordered to r/o cirrhosis and hepatosplenomegaly --> reverse isolation if ANC is <2000 --> Give neupogen if ANC <1000 4. Anemia of chronic disease (or of iron deficiency) due to underlying chronic medical issues, multifactorial --> Anemia workup has been ordered. Results pending --> Stool OB negative --> No evidence of hemolysis is noted, peripheral smear has been reviewed. --> Hgb goal >7. Transfuse prn. --> HGB trend: 10.7--> --> Epogen or iron at this time is not particularly indicated --> Medications have been reviewed, med recon Eliquis but patient denies taking eliquis also have discussed with bedside RN 5. Parkinson's Disease 6. Dementia 7. Multiple Falls --> CT head no acute pathology noted 8. Moderate spondylosis --> CT Cervical Spine reviewed The timing of this note does not necessarily reflect the time of the patient was seen. GREATLY APPRECIATE CONSULTATION Subjective Allergies: Coded Allergies: No Known Allergies (Unverified , 04/02/19) All Systems: reviewed and negative except above Subjective 04/04: Pt is awake in bed resting, alert. Afebrile, no sob. 04/05: Pt in bed, alert, oriented, verbally responsive. No respiratory distress noted, no c/o pain at this time. Objective Objective Current Medications Medications (Trade) Dose Ordered Sig/Radha Route PRN Reason Start Time Stop Time Status Last Admin Dose Admin Amantadine HCl (Symmetrel) 100 mg BID ORAL 04/05/19 09:00 05/05/19 08:59 04/05/19 08:32 Aspirin (Ecotrin) 81 mg DAILY ORAL 04/03/19 09:00 05/03/19 08:59 04/05/19 08:32 Atorvastatin Calcium (Lipitor) 10 mg BEDTIME ORAL 04/03/19 21:00 05/03/19 20:59 04/04/19 21:08 Docusate Sodium (Colace) 100 mg DAILY ORAL 04/05/19 09:00 05/05/19 08:59 Losartan Potassium (Cozaar) 50 mg BID ORAL 04/04/19 18:00 05/04/19 17:59 04/05/19 08:32 Patient Own Medication (Patient's Own Med) 1 ea DAILY ORAL 04/05/19 09:00 05/05/19 08:59 04/05/19 09:42 Patient Own Medication (Patient's Own Med) 1 ea DAILY ORAL 04/05/19 09:00 05/05/19 08:59 04/05/19 09:42 Patient Own Medication (Patient's Own Med) 1 ea DAILY ORAL 04/05/19 09:00 05/05/19 08:59 04/05/19 09:42 Patient Own Medication (Patient's Own Med) 1 ea QID ORAL 04/05/19 09:00 05/05/19 08:59 04/05/19 13:54 Solifenacin (Vesicare) 10 mg DAILY ORAL 04/05/19 09:00 05/05/19 08:59 04/05/19 08:33 Last 24 Hour Vital Signs Date Time Temp Pulse Resp B/P (MAP) Pulse Ox O2 Delivery O2 Flow Rate FiO2 04/05/19 12:00 97.6 71 18 97/59 (72) 98 04/05/19 09:00 Room Air 04/05/19 08:32 135/77 04/05/19 08:00 98.7 64 20 135/77 (96) 98 04/05/19 04:00 98.4 67 18 137/81 (99) 96 04/05/19 00:00 98.1 68 18 135/74 (94) 96 04/04/19 21:00 Room Air 04/04/19 20:00 99.0 69 18 126/70 (88) 96 04/04/19 18:49 139/76 04/04/19 16:00 97.9 74 18 142/90 (107) 99 04/04/19 12:00 97.8 66 18 128/71 (90) 98 04/04/19 09:00 Room Air 04/04/19 08:27 134/71 04/04/19 08:15 96.2 63 18 134/71 (92) 96 04/04/19 04:00 98.4 72 16 134/70 (91) 97 04/04/19 00:00 98.1 63 18 127/64 (85) 97 04/03/19 21:00 Room Air 04/03/19 20:00 98.0 70 18 121/74 (90) 96 04/03/19 16:00 98.0 70 18 126/80 (95) 98 Intake and Output 04/04/19 04/05/19 19:00 07:00 Intake Total 680 ml Output Total 600 ml 1225 ml Balance 80 ml -1225 ml Intake Oral 680 ml Output Urine Total 600 ml 1225 ml # Voids 2 # Bowel Movements 2 Labs Test 04/02/19 20:00 04/02/19 20:15 04/03/19 05:50 04/04/19 03:00 White Blood Count 5.7 K/UL (4.8-10.8) 3.8 K/UL (4.8-10.8) Red Blood Count 3.56 M/UL (4.70-6.10) 3.23 M/UL (4.70-6.10) Hemoglobin 11.3 G/DL (14.2-18.0) 10.7 G/DL (14.2-18.0) Hematocrit 32.3 % (42.0-52.0) 30.9 % (42.0-52.0) Mean Corpuscular Volume 91 FL (80-99) 96 FL (80-99) Mean Corpuscular Hemoglobin 31.7 PG (27.0-31.0) 33.1 PG (27.0-31.0) Mean Corpuscular Hemoglobin Concent 35.0 G/DL (32.0-36.0) 34.6 G/DL (32.0-36.0) Red Cell Distribution Width 11.8 % (11.6-14.8) 12.3 % (11.6-14.8) Platelet Count 137 K/UL (150-450) 117 K/UL (150-450) Mean Platelet Volume 7.7 FL (6.5-10.1) 9.5 FL (6.5-10.1) Neutrophils (%) (Auto) 71.5 % (45.0-75.0) 58.1 % (45.0-75.0) Lymphocytes (%) (Auto) 18.0 % (20.0-45.0) 24.6 % (20.0-45.0) Monocytes (%) (Auto) 8.5 % (1.0-10.0) 12.2 % (1.0-10.0) Eosinophils (%) (Auto) 1.3 % (0.0-3.0) 4.0 % (0.0-3.0) Basophils (%) (Auto) 0.7 % (0.0-2.0) 1.1 % (0.0-2.0) Prothrombin Time 10.3 SEC (9.30-11.50) Prothromb Time International Ratio 1.0 (0.9-1.1) Activated Partial Thromboplast Time 26 SEC (23-33) Sodium Level 142 MMOL/L (136-145) Potassium Level 3.8 MMOL/L (3.5-5.1) Chloride Level 104 MMOL/L (98-107) Carbon Dioxide Level 32 MMOL/L (21-32) Anion Gap 7 mmol/L (5-15) Blood Urea Nitrogen 30 mg/dL (7-18) Creatinine 1.1 MG/DL (0.55-1.30) Estimat Glomerular Filtration Rate mL/min (>60) Glucose Level 117 MG/DL (74-106) Calcium Level 8.9 MG/DL (8.5-10.1) Total Bilirubin 1.1 MG/DL (0.2-1.0) Direct Bilirubin 0.3 MG/DL (0.0-0.3) Aspartate Amino Transf (AST/SGOT) 44 U/L (15-37) Alanine Aminotransferase (ALT/SGPT) 15 U/L (12-78) Alkaline Phosphatase 77 U/L (46-116) Troponin I 0.016 ng/mL (0.000-0.056) Total Protein 6.3 G/DL (6.4-8.2) Albumin 3.7 G/DL (3.4-5.0) Globulin 2.6 g/dL Albumin/Globulin Ratio 1.4 (1.0-2.7) Thyroid Stimulating Hormone (TSH) 1.763 uiU/mL (0.358-3.740) Urine Color Yellow Urine Appearance Cloudy Urine pH 8 (4.5-8.0) Urine Specific [place] 1.010 (1.005-1.035) Urine Protein Negative (NEGATIVE) Urine Glucose (UA) Negative (NEGATIVE) Urine Ketones Negative (NEGATIVE) Urine Blood 4+ (NEGATIVE) Urine Nitrite Negative (NEGATIVE) Urine Bilirubin Negative (NEGATIVE) Urine Urobilinogen Normal MG/DL (0.0-1.0) Urine Leukocyte Esterase Negative (NEGATIVE) Urine RBC 15-20 /HPF (0 - 0) Urine WBC 0 /HPF (0 - 0) Urine Squamous Epithelial Cells None /LPF (NONE/OCC) Urine Amorphous Sediment Many /LPF (NONE) Urine Bacteria Few /HPF (NONE) Prostate Specific Antigen 0.85 ng/mL (0.13-4.0) Hepatitis A IgM Antibody Negative (Negative) Hepatitis B Surface Antigen Negative (Negative) Hepatitis B Core IgM Antibody Negative (Negative) Hepatitis C Antibody <0.1 s/co ratio HIV-1 Antibody Negative (Negative) HIV-2 Antibody Negative (Negative) HIV Note Negative (.) HIV (1&2) Antibody Rapid Preliminary positive Stool Occult Blood Negative (NEGATIVE) Height (Feet): 5 Height (Inches): 5.00 Weight (Pounds): 134 Objective Physical Exam General Appearance: , Chronically Ill appearing multiple dressings on BUE Head: atraumatic ENT: normal ENT inspection, hearing grossly normal, normal voice Neck: normal inspection, supple, no bony tend, limited range of motion Respiratory: normal inspection, lungs clear, normal breath sounds, no respiratory distress, no retraction, no wheezing Cardiovascular: regular rate, rhythm, no edema Gastrointestinal: normal inspection, normal bowel sounds, non tender, soft, no guarding, no hernia Genitourinary: no CVA tenderness Musculoskeletal: decreased range of motion - decreased rOM of neck and left shoulder Neurologic: normal inspection, alert, oriented x3, responsive, real estate representative III-XII nml as tested, speech normal, other - muscular atrophy bilateral quadriceps Psychiatric: normal inspection, judgement/insight normal, mood/affect normal Skin: normal color, other - multiple superficial skin tears to extremities and steristrips to left foreaem Francis Keane MD Apr 05, 2019 14:14
--- NOTE | 2019-04-05 15:03 | Infectious Diseases Prog Note ---
Assessment/Plan Assessment/Plan Full consult dictated: A/P 1) possible HIV 2) rapid test preliminary is + 3) await confirmation 4) check cd4 and viral load 5 hx falls 6) thank you Subjective Allergies: Coded Allergies: No Known Allergies (Unverified , 04/02/19) Objective Vital Signs Last 24 Hour Vital Signs Date Time Temp Pulse Resp B/P (MAP) Pulse Ox O2 Delivery O2 Flow Rate FiO2 04/05/19 12:00 97.6 71 18 97/59 (72) 98 04/05/19 09:00 Room Air 04/05/19 08:32 135/77 04/05/19 08:00 98.7 64 20 135/77 (96) 98 04/05/19 04:00 98.4 67 18 137/81 (99) 96 04/05/19 00:00 98.1 68 18 135/74 (94) 96 04/04/19 21:00 Room Air 04/04/19 20:00 99.0 69 18 126/70 (88) 96 04/04/19 18:49 139/76 04/04/19 16:00 97.9 74 18 142/90 (107) 99 Height (Feet): 5 Height (Inches): 5.00 Weight (Pounds): 134 Current Medications Medications (Trade) Dose Ordered Sig/Radha Route PRN Reason Start Time Stop Time Status Last Admin Dose Admin Amantadine HCl (Symmetrel) 100 mg BID ORAL 04/05/19 09:00 05/05/19 08:59 04/05/19 08:32 Aspirin (Ecotrin) 81 mg DAILY ORAL 04/03/19 09:00 05/03/19 08:59 04/05/19 08:32 Atorvastatin Calcium (Lipitor) 10 mg BEDTIME ORAL 04/03/19 21:00 05/03/19 20:59 04/04/19 21:08 Docusate Sodium (Colace) 100 mg DAILY ORAL 04/05/19 09:00 05/05/19 08:59 Losartan Potassium (Cozaar) 50 mg BID ORAL 04/04/19 18:00 05/04/19 17:59 04/05/19 08:32 Patient Own Medication (Patient's Own Med) 1 ea DAILY ORAL 04/05/19 09:00 05/05/19 08:59 04/05/19 09:42 Patient Own Medication (Patient's Own Med) 1 ea DAILY ORAL 04/05/19 09:00 05/05/19 08:59 04/05/19 09:42 Patient Own Medication (Patient's Own Med) 1 ea DAILY ORAL 04/05/19 09:00 05/05/19 08:59 04/05/19 09:42 Patient Own Medication (Patient's Own Med) 1 ea QID ORAL 04/05/19 09:00 05/05/19 08:59 04/05/19 13:54 Solifenacin (Vesicare) 10 mg DAILY ORAL 04/05/19 09:00 05/05/19 08:59 04/05/19 08:33 Hermes Willis MD Apr 05, 2019 15:03
--- NOTE | 2019-04-05 15:09 | Consultation ---
History of Present Illness General Date patient seen: Apr 05, 2019 Chief Complaint: Multiple Trauma/Fall Referring physician: Dr. Han Present Illness HPI Mkuul Arroyo 78 year old male with PMH of parkinsons, dementia, HTN, prostate CA presented with complaints of multiple falls. Pt states he had fallen 2 times at a friends alliance party over the weekend, states he struck his head on a bathtub, - LOC. Pt states he has fallen at least 5 times over past week. Pt lives by himself in a 2 story home and has no help. Pt would like to ask his friends for help vs bring placed in SNF. pt denies fevers, chills, N/V/C/D, urinary complaints or abdominal complaints. Patient is followed by neurologist as well as urologist for his prostate ca Dr.M. Lemus in [place]. He has not received Chemo or radiation and he does not recall his last PSA level. He states he was diagnosed 1 year ago. Heme/ Onc was consulted for low wbc count, pt also has thrombocytopenia. Allergies: Coded Allergies: No Known Allergies (Unverified , 04/02/19) Medication History Scheduled Amantadine HCl (Amantadine), 100 MG PO BID, (Reported) Aspirin* (Aspir 81*), 81 MG ORAL DAILY, (Reported) Atorvastatin Calcium* (Lipitor*), Unknown Dose ORAL BEDTIME, (Reported) Losartan Potassium* (Cozaar*), 50 MG ORAL BID, (Reported) Rasagiline Mesylate (Azilect), 1 MG PO DAILY, (Reported) Ropinirole Hcl (Ropinirole Hcl), 12 MG PO DAILY, (Reported) Solifenacin Succinate (Vesicare*), 10 MG ORAL DAILY, (Reported) Miscellaneous Medications Apixaban (Eliquis), Unknown Dose PO, (Reported) Carbidopa/Levodopa/Entacapone (Qwehbpuqp-Qomcmztg-Lwry 75 Mg), 0.5 EACH PO, ( Reported) Mirabegron (Myrbetriq), 50 MG PO, (Reported) Patient History Healthcare decision maker Resuscitation status Full Code Advanced Directive on File Past Medical/Surgical History Past Medical/Surgical History: (1) Parkinson disease (2) Cervical spine arthritis (3) Frequent falls Physical Exam Last 24 Hour Vital Signs Date Time Temp Pulse Resp B/P (MAP) Pulse Ox O2 Delivery O2 Flow Rate FiO2 04/05/19 12:00 97.6 71 18 97/59 (72) 98 04/05/19 09:00 Room Air 04/05/19 08:32 135/77 04/05/19 08:00 98.7 64 20 135/77 (96) 98 04/05/19 04:00 98.4 67 18 137/81 (99) 96 04/05/19 00:00 98.1 68 18 135/74 (94) 96 04/04/19 21:00 Room Air 04/04/19 20:00 99.0 69 18 126/70 (88) 96 04/04/19 18:49 139/76 04/04/19 16:00 97.9 74 18 142/90 (107) 99 Intake and Output 04/04/19 04/05/19 19:00 07:00 Intake Total 680 ml Output Total 600 ml 1225 ml Balance 80 ml -1225 ml Intake Oral 680 ml Output Urine Total 600 ml 1225 ml # Voids 2 # Bowel Movements 2 Height (Feet): 5 Height (Inches): 5.00 Weight (Pounds): 134 Medications Current Medications Medications (Trade) Dose Ordered Sig/Ardha Route PRN Reason Start Time Stop Time Status Last Admin Dose Admin Amantadine HCl (Symmetrel) 100 mg BID ORAL 04/05/19 09:00 05/05/19 08:59 04/05/19 08:32 Aspirin (Ecotrin) 81 mg DAILY ORAL 04/03/19 09:00 05/03/19 08:59 04/05/19 08:32 Atorvastatin Calcium (Lipitor) 10 mg BEDTIME ORAL 04/03/19 21:00 05/03/19 20:59 04/04/19 21:08 Docusate Sodium (Colace) 100 mg DAILY ORAL 04/05/19 09:00 05/05/19 08:59 Losartan Potassium (Cozaar) 50 mg BID ORAL 04/04/19 18:00 05/04/19 17:59 04/05/19 08:32 Patient Own Medication (Patient's Own Med) 1 ea DAILY ORAL 04/05/19 09:00 05/05/19 08:59 04/05/19 09:42 Patient Own Medication (Patient's Own Med) 1 ea DAILY ORAL 04/05/19 09:00 05/05/19 08:59 04/05/19 09:42 Patient Own Medication (Patient's Own Med) 1 ea DAILY ORAL 04/05/19 09:00 05/05/19 08:59 04/05/19 09:42 Patient Own Medication (Patient's Own Med) 1 ea QID ORAL 04/05/19 09:00 05/05/19 08:59 04/05/19 13:54 Solifenacin (Vesicare) 10 mg DAILY ORAL 04/05/19 09:00 05/05/19 08:59 04/05/19 08:33 Assessment/Plan Problem List: (1) Dehydration ICD Codes: E86.0 - Dehydration SNOMED: 66010624 (2) Parkinson disease ICD Codes: G20 - Parkinson's disease SNOMED: 26095856, 278394431 (3) Cervical spine arthritis ICD Codes: M47.812 - Spondylosis without myelopathy or radiculopathy, cervical region SNOMED: 943611654, 862416496 (4) Frequent falls ICD Codes: R29.6 - Repeated falls SNOMED: 706705586 (5) Skin tear of right elbow without complication ICD Codes: S51.011A - Laceration without foreign body of right elbow, initial encounter SNOMED: 433053612, 024539118 (6) Skin tear of left upper extremity ICD Codes: S41.112A - Laceration without foreign body of left upper arm, initial encounter SNOMED: 536407438, 441532788 (7) Fall ICD Codes: W19.XXXA - Unspecified fall, initial encounter SNOMED: 7604289, 505982599 Daphne Mayo N.P. Apr 05, 2019 15:09
[2019-04-05 16:00] VITALS: BP 106/65
[2019-04-05 17:23] LABS: RED BLOOD COUNT 3.55 M/UL (4.70-6.10); WHITE BLOOD COUNT 4.9 K/UL (4.8-10.8)
[2019-04-05 17:24] LABS: % IRON SATURATION 23 % (15-50); HEMATOCRIT 33.7 % (42.0-52.0); HEMOGLOBIN 11.6 G/DL (14.2-18.0); IRON 53 ug/dL (50-175); MEAN CORPUSCULAR VOLUME 95 FL (80-99); NEUTROPHILS % (AUTO) 65.9 % (45.0-75.0); PLATELET COUNT 129 K/UL (150-450); RED CELL DISTRIBUTION WIDTH 12.1 % (11.6-14.8); TOTAL IRON BINDING CAPACITY 227 ug/dL (250-450)
[2019-04-05 17:25] LABS: BASOPHILS % (AUTO) 0.8 % (0.0-2.0); EOSINOPHILS % (AUTO) 2.2 % (0.0-3.0); LYMPHOCYTES % (AUTO) 21.6 % (20.0-45.0); MONOCYTES % (AUTO) 9.4 % (1.0-10.0)
[2019-04-05 17:28] LABS: FERRITIN 90 NG/ML (8-388); LACTATE DEHYDROGENASE 225 U/L (81-234)
--- NOTE | 2019-04-05 19:05 | NUR ---
HAND-OFF: Report given to JAYLENE Kennedy.
[2019-04-05 20:00] VITALS: BP 104/68
--- NOTE | 2019-04-05 20:33 | NUR ---
CASE MANAGEMENT: REVIEW SI: CERVICAL SPINE ARTHRITIS . FREQUENT FALLS T 96.7 HR 69 RR 20 BP 97/59 SAT 98% ROOM AIR H/H 11.6/33.7 TIBC 227 IS: SYMMETREL PO BID ECOTRIN PO QD COZAAR PO BID LIPITOR PO QHS MED/SURG STATUS DCP: PATIENT IS FROM HOME
--- NOTE | 2019-04-05 20:39 | NUR ---
NURSE NOTES: Received patient awake,alert,verbal,resting in bed,visitor at bedside.
--- NOTE | 2019-04-05 21:13 | General Progress Note ---
Assessment/Plan Assessment/Plan: 78 year old male with PMH of parkinsons, HTN, and dementia presented with complaints of multiple falls. #Frequent falls -fall precautions -PT/OT -Likely will need placement #Prelim HIV + -pending confirmatory testing -ID consult apprecaited #Recent head trauma -Head CT unremarkbale #HTN -Restart LUBRICATING SPECIALIST meds as needed #Dementia -Neurology consulted Code: Insurance Risk Surveyor of note may not reflect time of encounter Subjective Date patient seen: Apr 05, 2019 Allergies: Coded Allergies: No Known Allergies (Unverified , 04/02/19) Subjective No acute overnight events, prelim HIV+, pending confirmation test. pt with no complaints, Objective Last 24 Hour Vital Signs Date Time Temp Pulse Resp B/P (MAP) Pulse Ox O2 Delivery O2 Flow Rate FiO2 04/05/19 20:09 Room Air 04/05/19 20:00 97.6 70 18 104/68 (80) 97 04/05/19 17:45 106/65 04/05/19 16:00 96.7 69 20 106/65 (79) 100 04/05/19 12:00 97.6 71 18 97/59 (72) 98 04/05/19 09:00 Room Air 04/05/19 08:32 135/77 04/05/19 08:00 98.7 64 20 135/77 (96) 98 04/05/19 04:00 98.4 67 18 137/81 (99) 96 04/05/19 00:00 98.1 68 18 135/74 (94) 96 Intake and Output 04/04/19 04/05/19 19:00 07:00 Intake Total 680 ml Output Total 600 ml 1225 ml Balance 80 ml -1225 ml Intake Oral 680 ml Output Urine Total 600 ml 1225 ml # Voids 2 # Bowel Movements 2 Laboratory Tests 04/05/19 16:45: White Blood Count 4.9, Red Blood Count 3.55L, Hemoglobin 11.6L, Hematocrit 33.7L , Mean Corpuscular Volume 95, Mean Corpuscular Hemoglobin 32.6H, Mean Corpuscular Hemoglobin Concent 34.3, Red Cell Distribution Width 12.1, Platelet Count 129L, Mean Platelet Volume 7.8, Neutrophils (%) (Auto) 65.9, Lymphocytes ( %) (Auto) 21.6, Monocytes (%) (Auto) 9.4, Eosinophils (%) (Auto) 2.2, Basophils (%) (Auto) 0.8, Lymphocytes [Pending], Reticulocyte Count 0.3L, Sickle Cell Screen [Pending], Iron Level 53, Total Iron Binding Capacity 227L, Percent Iron Saturation 23, Unsaturated Iron Binding 174, Ferritin 90, Lactate Dehydrogenase 225, Carcinoembryonic Antigen [Pending], Methylmalonic Acid [Pending], Thyroid Stimulating Hormone (TSH) 2.426, Percent CD3 Cells [Pending], Absolute CD3 Count [Pending], Percent CD4 Cells [Pending], Absolute CD4 Count [Pending], T- Lymphocyte CD4/CD8 Ratio [Pending], Percent CD8 Cells [Pending], Absolute CD8 Count [Pending], HIV-1 RNA (PCR) log10 Value [Pending], HIV-1 RNA Ultraquantitative (PCR) [Pending], HIV (1&2) Antibody Rapid Negative 04/05/19 19:35: Prothrombin Time 10.2, Prothromb Time International Ratio 1.0, Cryptococcus Antigen [Pending] Height (Feet): 5 Height (Inches): 5.00 Weight (Pounds): 134 Objective General Appearance: WD/WN, no apparent distress Lines, tubes and drains: peripheral HEENT: normocephalic, atraumatic, anicteric Neck: non-tender, normal alignment Respiratory/Chest: chest wall non-tender, lungs clear Cardiovascular/Chest: normal peripheral pulses Abdomen: normal bowel sounds, non tender, soft Extremities: normal range of motion Skin Exam: other - excoriations on b/l UE Neurologic: wind commissioning technician II-XII grossly normal Musculoskeletal: normal muscle bulk Sharon De La Cruz MD Apr 05, 2019 21:13
--- NOTE | 2019-04-05 23:45 | Consultation ---
DATE OF CONSULTATION: 04/05/2019 INFECTIOUS DISEASE CONSULTATION CONSULTING PHYSICIAN: Hermes Willis M.D. ATTENDING PHYSICIAN: Barry Cooney M.D. REFERRING PHYSICIAN: Sharon Schneider M.D. REASON FOR CONSULTATION: Possible human immunodeficiency virus infection. CHIEF COMPLAINT: The patient's chief complaint coming in to the hospital is syncope and falls. HISTORY OF PRESENT ILLNESS: This is a very pleasant 78-year-old male, who comes in to [facility]. He has history of multiple medical problems including prostate cancer, hypertension, and dementia. The patient is status post fall in the bathtub and struck in the head and had loss of consciousness. He has fallen multiple times over the past week. The patient was admitted for frequent falls and workup. In the workup, it was noted that his preliminary human immunodeficiency virus 1 and 2 antibody tests was positive. Confirmation test is pending. The patient does have leukopenia. Infectious Disease consultation was requested for further management and diagnostic workup. Case was discussed with Dr. Sharon Schneider. Again, confirmation test is pending for the human immunodeficiency virus. I have also ordered CD4 and viral load and because of the falls, I will try to rule out a cryptococcus infection and we will get cryptococcus urine antigen. MAR was noted. Orders were noted. Notes and records were reviewed. REVIEW OF SYSTEMS: CONSTITUTIONAL: The patient has history of falls. He struck his head. No fevers. No chills. No night sweats or weight loss. HEAD AND NECK: No head pain or neck pain currently. No change in vision. CARDIAC: No chest pain. GASTROINTESTINAL: No nausea, vomiting, or diarrhea. GENITOURINARY: No dysuria or frequency. No Massey. PULMONARY: No congestion or shortness of breath. Mild secretions. SKIN: No rashes or itching. No pruritus. EXTREMITY: No extremity pain. NEUROLOGIC: No seizures. Generalized fatigue. No focal weakness currently. PAST MEDICAL HISTORY: The patient has a past medical history of the following. The patient has a past medical history of Parkinson disease, also history of dementia, history of hypertension, history of prostate cancer, history of falls, history of what looks like dyslipidemia, he is on anti-lipid therapy. He is leukopenic currently, history of trauma, history of anemia, and thrombocytopenia. MEDICATIONS: Upon reviewing the MAR, the patient is on the following medications. He is on amantadine, VESIcare, and Colace. He gets his own home medications. He is on Cozaar, Lipitor, and Ecotrin. Outside medications were noted and reconciliated. He is on VESIcare, ropinirole, Myrbetriq, Azilect, carbidopa, atorvastatin, aspirin, Eliquis, and amantadine. ALLERGIES: No known drug allergies. No antibiotic allergies. SOCIAL HISTORY: Negative for smoking, alcohol, or drug abuse. FAMILY HISTORY: Noncontributory. Negative for exposure to tuberculosis or cancer. PHYSICAL EXAM: VITAL SIGNS: Temperature is 97.6, pulse rate 71, respiratory rate 18, blood pressure 97/59, and saturation 98%. He is afebrile. GENERAL: Alert, weak, but responsive. Seems to be oriented. HEAD AND NECK: Oral exam, no thrush. Eye exam, no icterus. Neck is supple. No JVD. Normocephalic. No icterus or thrush. HEART: Regular. No gallop or murmur. No friction rub. ABDOMEN: Soft. Positive bowel sounds. Nontender. LUNGS: Clear bilaterally. No rhonchi or rales. SKIN: No rash. MUSCULOSKELETAL: No effusions. Legs are without cellulitis. PERIPHERAL VASCULAR: No cyanosis or gangrene. NEUROLOGIC: Generalized weakness and responsive. Nonfocal. LINE SITES: Without phlebitis. GENITOURINARY: No Massey. LABORATORY DATA: Laboratory data is as follows. UA had hematuria, 15 to 20 rbc's, leukocyte esterase negative, and white cells negative. Creatinine 1.1. LFTs noted. White count 3.8, hemoglobin 10.7, and platelet count 117,000. I have ordered cryptococcus antigen and human immunodeficiency virus tests. Hepatitis screening is negative. The human immunodeficiency virus rapid test preliminary is positive. However, human immunodeficiency virus antibody 1 and 2, I do not know if that the confirmatory tests have been negative. I have ordered a CD4 and viral load. I will reorder rapid tests also. ASSESSMENT AND PLAN: 1. The Possible human immunodeficiency virus infection. Rapid test was positive. However, await confirmatory test, it looks like other human immunodeficiency virus antibody test, which could be the confirmatory tests were negative based on the readings. Human immunodeficiency virus 1 and 2 antibody tests are negative with the human immunodeficiency virus 1 and 2 antibody rapid test is positive. We will recheck the human immunodeficiency virus antibody test. We will check CD4 and viral load. If testing is positive, the patient will need anti-retroviral therapy. However, follow up on the serology. Because of the syncope, we will also get cryptococcus antigen, even though it does not seem like this is likely source of the falls. He has history of Parkinson's and dementia. 2. Falls. 3. Syncope. 4. Pancytopenia. 5. Anemia and thrombocytopenia. 6. Dementia. 7. Parkinson's. 8. Possible dyslipidemia. 9. Hypertension. 10. Prostate cancer. 11. No known drug allergies. 12. Social history is negative. 13. Family history is noncontributory. 14. MAR is noted. 15. Case was discussed with RN. 16. Case was discussed with Dr. Sharon Schneider. 17. Notes and records were noted. Orders were entered. 18. Continue treatment per primary consultants. Hermes Willis M.D. DR: LANETTE JOB#: [id number] CC: NICK
[2019-04-06] VITALS (8 sets, daily range): BP systolic 108–148; BP diastolic 62–85
[2019-04-06 07:03] LABS: BASOPHILS % (AUTO) 0.8 % (0.0-2.0); EOSINOPHILS % (AUTO) 3.9 % (0.0-3.0); HEMATOCRIT 38.3 % (42.0-52.0); HEMOGLOBIN 13.5 G/DL (14.2-18.0); LYMPHOCYTES % (AUTO) 23.4 % (20.0-45.0); MEAN CORPUSCULAR VOLUME 94 FL (80-99); MONOCYTES % (AUTO) 7.5 % (1.0-10.0); NEUTROPHILS % (AUTO) 64.4 % (45.0-75.0); PLATELET COUNT 156 K/UL (150-450); RED BLOOD COUNT 4.08 M/UL (4.70-6.10); RED CELL DISTRIBUTION WIDTH 12.5 % (11.6-14.8); WHITE BLOOD COUNT 4.6 K/UL (4.8-10.8)
[2019-04-06 07:05] LABS: ANION GAP 7 mmol/L (5-15); BLOOD UREA NITROGEN 25 mg/dL (7-18); CALCIUM 8.7 MG/DL (8.5-10.1); CARBON DIOXIDE 29 MMOL/L (21-32); CHLORIDE 102 MMOL/L (98-107); POTASSIUM 3.9 MMOL/L (3.5-5.1); SODIUM 138 MMOL/L (136-145)
--- NOTE | 2019-04-06 07:14 | NUR ---
HAND-OFF: Report given to JAYLENE Burnett.
--- NOTE | 2019-04-06 07:20 | NUR ---
NURSE NOTES: received report from JAYLENE Kennedy. patient in bed. alert. oriented. verbally responsive. no respiratory distress noted on room air. no c/o pain at this time. IV on RAC intact. BRP with walker and assist. bed in the lowest position. alarm on. call light within reach. will provide plan of care.
[2019-04-06] MEDS: Amantadine 100mg cap ORAL SCH ×2 (09:03→17:59)
[2019-04-06] MEDS: Docusate 100mg cap ORAL SCH (09:03)
[2019-04-06] MEDS: Aspirin EC 81mg tab ORAL SCH (09:03)
[2019-04-06] MEDS: Solifenacin 10mg tab ORAL SCH (09:03)
[2019-04-06] MEDS: Losartan 50mg tab ORAL SCH ×2 (09:03→17:32)
[2019-04-06] MEDS: ENTACAPONE ORAL SCH ×4 (09:04→20:27)
[2019-04-06] MEDS: RASAGILINE 1 MG ORAL SCH (09:04)
[2019-04-06] MEDS: CARBIDOPA ORAL SCH ×4 (09:04→20:27)
[2019-04-06] MEDS: MYRBETRIQ 50 MG ORAL SCH (09:04)
[2019-04-06] MEDS: LEVODOPA ORAL SCH ×4 (09:04→20:27)
[2019-04-06] MEDS: ROPINIROLE 12 MG ORAL SCH (09:05)
--- NOTE | 2019-04-06 09:09 | Hematology/Onc Progress Note ---
Assessment/Plan Assessment/Plan Assessment/Plan ASSESSMENT AND REC'S 1. Prostate Ca --> followed by outpatient Urologist Santos Lr, I have called his office and have requested last prognosis requiring treatment and last PSA level. --> We will check PSA level at 0.85 --> Pt reports no history of chemo or radiation, he does report having prostate surgery unable to recall details. 2. Thrombocytopenia - potential causes multifactorial, evaluate liver and viral etiologies to begin, also could be related to underlying medications patient has received. --> Hep panel and HIV ordered - both are negative --> US abd to evaluate for cirrhosis and hsm ordered - unremarkable --> Peripheral smear ordered to evaluate for blasts /schistocytes --> abx and other meds have been reviewed --> Plt trend: 156--> --> ok for ppx if plt >50k w/ either heparin or lovenox --> Transfuse if Plt < 20k and fever, or if Plt < 10k without fever 3. Leukopenia--multiple etiologies could be related to Prostate Ca or underlying liver disease, medication-induced, --> peripheral smear has been ordered --> Medications have been reviewed --> Continue to monitor for improvement, trend cbc --> Hep panel and HIV have been ordered - both negative --> US abd ordered to r/o cirrhosis and hepatosplenomegaly - unremarkable --> reverse isolation if ANC is <2000 --> Give neupogen if ANC <1000 --> WBC trend: 4.6 4. Anemia of chronic disease due to underlying chronic medical issues, multifactorial --> Anemia workup has been reviewed. Ferritin 90 --> Stool OB negative --> No evidence of hemolysis is noted, peripheral smear has been reviewed. --> Hgb goal >7. Transfuse prn. --> HGB trend: 10.7-->13.5 --> Epogen or iron at this time is not particularly indicated --> Medications have been reviewed, med recon Eliquis but patient denies taking eliquis also have discussed with bedside RN 5. Parkinson's Disease 6. Dementia 7. Multiple Falls --> CT head no acute pathology noted 8. Moderate spondylosis --> CT Cervical Spine reviewed The timing of this note does not necessarily reflect the time of the patient was seen. GREATLY APPRECIATE CONSULTATION Subjective Allergies: Coded Allergies: No Known Allergies (Unverified , 04/02/19) All Systems: reviewed and negative except above Subjective 04/04: Pt is awake in bed resting, alert. Afebrile, no sob. 04/05: Pt in bed, alert, oriented, verbally responsive. No respiratory distress noted, no c/o pain at this time. 04/06: Pt in bed, alert and oriented, verbally responsive. No respiratory distress noted on room air. No c/o pain at this time. Objective Objective Current Medications Medications (Trade) Dose Ordered Sig/Radha Route PRN Reason Start Time Stop Time Status Last Admin Dose Admin Amantadine HCl (Symmetrel) 100 mg BID ORAL 04/05/19 09:00 05/05/19 08:59 04/05/19 17:45 Aspirin (Ecotrin) 81 mg DAILY ORAL 04/03/19 09:00 05/03/19 08:59 04/05/19 08:32 Atorvastatin Calcium (Lipitor) 10 mg BEDTIME ORAL 04/03/19 21:00 05/03/19 20:59 04/05/19 21:10 Docusate Sodium (Colace) 100 mg DAILY ORAL 04/05/19 09:00 05/05/19 08:59 Losartan Potassium (Cozaar) 50 mg BID ORAL 04/04/19 18:00 05/04/19 17:59 04/05/19 08:32 Patient Own Medication (Patient's Own Med) 1 ea DAILY ORAL 04/05/19 09:00 05/05/19 08:59 04/05/19 09:42 Patient Own Medication (Patient's Own Med) 1 ea DAILY ORAL 04/05/19 09:00 05/05/19 08:59 04/05/19 09:42 Patient Own Medication (Patient's Own Med) 1 ea DAILY ORAL 04/05/19 09:00 05/05/19 08:59 04/05/19 09:42 Patient Own Medication (Patient's Own Med) 1 ea QID ORAL 04/05/19 09:00 05/05/19 08:59 04/05/19 21:10 Solifenacin (Vesicare) 10 mg DAILY ORAL 04/05/19 09:00 05/05/19 08:59 04/05/19 08:33 Last 24 Hour Vital Signs Date Time Temp Pulse Resp B/P (MAP) Pulse Ox O2 Delivery O2 Flow Rate FiO2 04/06/19 08:00 98.0 70 20 121/63 (82) 96 04/06/19 04:00 97.9 64 18 132/74 (93) 98 04/06/19 00:03 98.8 65 16 114/62 (79) 98 04/05/19 20:09 Room Air 04/05/19 20:00 97.6 70 18 104/68 (80) 97 04/05/19 17:45 106/65 04/05/19 16:00 96.7 69 20 106/65 (79) 100 04/05/19 12:00 97.6 71 18 97/59 (72) 98 04/05/19 09:00 Room Air 04/05/19 08:32 135/77 04/05/19 08:00 98.7 64 20 135/77 (96) 98 04/05/19 04:00 98.4 67 18 137/81 (99) 96 04/05/19 00:00 98.1 68 18 135/74 (94) 96 04/04/19 21:00 Room Air 04/04/19 20:00 99.0 69 18 126/70 (88) 96 04/04/19 18:49 139/76 04/04/19 16:00 97.9 74 18 142/90 (107) 99 04/04/19 12:00 97.8 66 18 128/71 (90) 98 Intake and Output 04/05/19 04/06/19 18:59 06:59 Intake Total 300 ml Output Total 1200 ml Balance 300 ml -1200 ml Intake Oral 300 ml Output Urine Total 1200 ml # Voids 1 Labs Test 04/04/19 03:00 04/05/19 16:45 04/05/19 19:35 04/06/19 06:40 Stool Occult Blood Negative (NEGATIVE) White Blood Count 4.9 K/UL (4.8-10.8) 4.6 K/UL (4.8-10.8) Red Blood Count 3.55 M/UL (4.70-6.10) 4.08 M/UL (4.70-6.10) Hemoglobin 11.6 G/DL (14.2-18.0) 13.5 G/DL (14.2-18.0) Hematocrit 33.7 % (42.0-52.0) 38.3 % (42.0-52.0) Mean Corpuscular Volume 95 FL (80-99) 94 FL (80-99) Mean Corpuscular Hemoglobin 32.6 PG (27.0-31.0) 33.1 PG (27.0-31.0) Mean Corpuscular Hemoglobin Concent 34.3 G/DL (32.0-36.0) 35.2 G/DL (32.0-36.0) Red Cell Distribution Width 12.1 % (11.6-14.8) 12.5 % (11.6-14.8) Platelet Count 129 K/UL (150-450) 156 K/UL (150-450) Mean Platelet Volume 7.8 FL (6.5-10.1) 8.5 FL (6.5-10.1) Neutrophils (%) (Auto) 65.9 % (45.0-75.0) 64.4 % (45.0-75.0) Lymphocytes (%) (Auto) 21.6 % (20.0-45.0) 23.4 % (20.0-45.0) Monocytes (%) (Auto) 9.4 % (1.0-10.0) 7.5 % (1.0-10.0) Eosinophils (%) (Auto) 2.2 % (0.0-3.0) 3.9 % (0.0-3.0) Basophils (%) (Auto) 0.8 % (0.0-2.0) 0.8 % (0.0-2.0) Reticulocyte Count 0.3 % (0.5-2.0) Iron Level 53 ug/dL (50-175) Total Iron Binding Capacity 227 ug/dL (250-450) Percent Iron Saturation 23 % (15-50) Unsaturated Iron Binding 174 ug/dL (112-346) Ferritin 90 NG/ML (8-388) Lactate Dehydrogenase 225 U/L (81-234) Thyroid Stimulating Hormone (TSH) 2.426 uiU/mL (0.358-3.740) HIV (1&2) Antibody Rapid Negative (NEGATIVE) Prothrombin Time 10.2 SEC (9.30-11.50) Prothromb Time International Ratio 1.0 (0.9-1.1) Sodium Level 138 MMOL/L (136-145) Potassium Level 3.9 MMOL/L (3.5-5.1) Chloride Level 102 MMOL/L (98-107) Carbon Dioxide Level 29 MMOL/L (21-32) Anion Gap 7 mmol/L (5-15) Blood Urea Nitrogen 25 mg/dL (7-18) Creatinine 1.0 MG/DL (0.55-1.30) Estimat Glomerular Filtration Rate mL/min (>60) Glucose Level 94 MG/DL (74-106) Calcium Level 8.7 MG/DL (8.5-10.1) Height (Feet): 5 Height (Inches): 5.00 Weight (Pounds): 134 Objective Physical Exam General Appearance: , Chronically Ill appearing multiple dressings on BUE Head: atraumatic ENT: normal ENT inspection, hearing grossly normal, normal voice Neck: normal inspection, supple, no bony tend, limited range of motion Respiratory: normal inspection, lungs clear, normal breath sounds, no respiratory distress, no retraction, no wheezing Cardiovascular: regular rate, rhythm, no edema Gastrointestinal: normal inspection, normal bowel sounds, non tender, soft, no guarding, no hernia Genitourinary: no CVA tenderness Musculoskeletal: decreased range of motion - decreased rOM of neck and left shoulder Neurologic: normal inspection, alert, oriented x3, responsive, shop helper III-XII nml as tested, speech normal, other - muscular atrophy bilateral quadriceps Psychiatric: normal inspection, judgement/insight normal, mood/affect normal Skin: normal color, other - multiple superficial skin tears to extremities and steristrips to left foreaem Francis Keane MD Apr 06, 2019 09:09
--- NOTE | 2019-04-06 12:14 | NUR ---
DISCHARGE PLANNING FAXED REFERRAL TO [facility] P [phone], F [phone]. WILL FOLLOW UP. Addendum: 04/06/19 at 1647 by Ansley Arevalo LVN PATIENT ACCEPTED
--- NOTE | 2019-04-06 15:43 | Consultation ---
History of Present Illness General Date patient seen: Apr 06, 2019 Reason for Hospitalization: Multiple Trauma/Fall Present Illness HPI This is a very pleasant 70-year-old male with history of Parkinson's disease who states over the past few years and more recent in the past few months has noted decline in gait that presents with multiple falls recently. States that he mainly hits his elbows and knees and has sustained wounds in the past from this. Has hit his head prior but has had no significant intracranial injury. No nausea vomiting fever chills. Was admitted for care and management. Surgery called to evaluate given nonhealing wounds. Patient seen, patient evaluate, chart reviewed. No LOC Allergies: Coded Allergies: No Known Allergies (Unverified , 04/02/19) Medication History Scheduled Amantadine HCl (Amantadine), 100 MG PO BID, (Reported) Aspirin* (Aspir 81*), 81 MG ORAL DAILY, (Reported) Atorvastatin Calcium* (Lipitor*), Unknown Dose ORAL BEDTIME, (Reported) Losartan Potassium* (Cozaar*), 50 MG ORAL BID, (Reported) Rasagiline Mesylate (Azilect), 1 MG PO DAILY, (Reported) Ropinirole Hcl (Ropinirole Hcl), 12 MG PO DAILY, (Reported) Solifenacin Succinate (Vesicare*), 10 MG ORAL DAILY, (Reported) Miscellaneous Medications Apixaban (Eliquis), Unknown Dose PO, (Reported) Carbidopa/Levodopa/Entacapone (Sotuquqsm-Hofisoyd-Bzih 75 Mg), 0.5 EACH PO, ( Reported) Mirabegron (Myrbetriq), 50 MG PO, (Reported) Patient History History Provided By: Patient, Medical Record, PMD Healthcare decision maker Resuscitation status Full Code Advanced Directive on File Past Medical/Surgical History Past Medical/Surgical History: (1) Dehydration (2) Parkinson disease (3) Cervical spine arthritis (4) Frequent falls (5) Skin tear of right elbow without complication (6) Skin tear of left upper extremity (7) Fall Review of Systems Review of Symptoms General ROS: no weight loss or fever Psychological ROS: no depression or mood changes, no memory loss Ophthalmic ROS: no visual changes or eye irritation ENT ROS: no nasal congestion, hearing loss, dizziness Allergy and Immunology ROS: no allergic symptoms or urticaria Hematological and Lymphatic ROS: no swollen glands, unusual bleeding or bruising Endocrine ROS: no polyuria, polydipsia, weight changes, temperature intolerance Respiratory ROS: no cough, shortness of breath, or wheezing Cardiovascular ROS: no chest pain or dyspnea on exertion Gastrointestinal ROS: denies abdominal pain, no bright red blood in stool. Musculoskeletal ROS: no myalgias or arthralgias Neurological ROS: no TIA or stroke symptoms Dermatological ROS: no new or changing skin lesions, rashes or pruritis Physical Exam Physical Exam General appearance: alert, cooperative, no distress, appears stated age Head: Normocephalic, without obvious abnormality, atraumatic Eyes: conjunctivae/corneas clear. PERRL, EOM's intact. Fundi benign Throat: Lips, mucosa, and tongue normal. Teeth and gums normal Neck: supple, symmetrical, trachea midline, no adenopathy, thyroid: not enlarged, symmetric, no tenderness/mass/nodules, no carotid bruit and no JVD Lungs: clear to auscultation bilaterally Heart: regular rate and rhythm, S1, S2 normal, no murmur, click, rub or gallop Abdomen: soft, non-tender. Bowel sounds normal. No masses, no organomegaly Extremities: extremities normal, atraumatic, no cyanosis or edema Pulses: 2+ and symmetric Skin: Skin color, texture, turgor normal. No rashes or lesions Neurologic: Grossly normal Last 24 Hour Vital Signs Date Time Temp Pulse Resp B/P (MAP) Pulse Ox O2 Delivery O2 Flow Rate FiO2 04/06/19 12:00 97.5 72 20 117/62 (80) 97 04/06/19 09:03 121/63 04/06/19 09:00 Room Air 04/06/19 08:00 98.0 70 20 121/63 (82) 96 04/06/19 04:00 97.9 64 18 132/74 (93) 98 04/06/19 00:03 98.8 65 16 114/62 (79) 98 04/05/19 20:09 Room Air 04/05/19 20:00 97.6 70 18 104/68 (80) 97 04/05/19 17:45 106/65 04/05/19 16:00 96.7 69 20 106/65 (79) 100 Intake and Output 04/05/19 04/06/19 19:00 07:00 Intake Total 300 ml Output Total 1200 ml Balance 300 ml -1200 ml Intake Oral 300 ml Output Urine Total 1200 ml # Voids 1 Laboratory Tests Test 04/05/19 16:45 04/05/19 19:35 04/06/19 06:40 White Blood Count 4.9 K/UL (4.8-10.8) 4.6 K/UL (4.8-10.8) L Red Blood Count 3.55 M/UL (4.70-6.10) L 4.08 M/UL (4.70-6.10) L Hemoglobin 11.6 G/DL (14.2-18.0) L 13.5 G/DL (14.2-18.0) L Hematocrit 33.7 % (42.0-52.0) L 38.3 % (42.0-52.0) L Mean Corpuscular Volume 95 FL (80-99) 94 FL (80-99) Mean Corpuscular Hemoglobin 32.6 PG (27.0-31.0) H 33.1 PG (27.0-31.0) H Mean Corpuscular Hemoglobin Concent 34.3 G/DL (32.0-36.0) 35.2 G/DL (32.0-36.0) Red Cell Distribution Width 12.1 % (11.6-14.8) 12.5 % (11.6-14.8) Platelet Count 129 K/UL (150-450) L 156 K/UL (150-450) Mean Platelet Volume 7.8 FL (6.5-10.1) 8.5 FL (6.5-10.1) Neutrophils (%) (Auto) 65.9 % (45.0-75.0) 64.4 % (45.0-75.0) Lymphocytes (%) (Auto) 21.6 % (20.0-45.0) 23.4 % (20.0-45.0) Monocytes (%) (Auto) 9.4 % (1.0-10.0) 7.5 % (1.0-10.0) Eosinophils (%) (Auto) 2.2 % (0.0-3.0) 3.9 % (0.0-3.0) H Basophils (%) (Auto) 0.8 % (0.0-2.0) 0.8 % (0.0-2.0) Lymphocytes 23 % (Not Estab.) Nucleated Red Blood Cells (.) Reticulocyte Count 0.3 % (0.5-2.0) L Sickle Cell Screen Pending Iron Level 53 ug/dL (50-175) Total Iron Binding Capacity 227 ug/dL (250-450) L Percent Iron Saturation 23 % (15-50) Unsaturated Iron Binding 174 ug/dL (112-346) Ferritin 90 NG/ML (8-388) Lactate Dehydrogenase 225 U/L (81-234) Carcinoembryonic Antigen 2.6 ng/mL (0.0-4.7) Methylmalonic Acid Pending Thyroid Stimulating Hormone (TSH) 2.426 uiU/mL (0.358-3.740) Absolute Lymphocytes (Cell Immunity 2.2 x10E3/uL (0.7-3.1) Percent CD3 Cells 69.1 % (57.5-86.2) Absolute CD3 Count 1520 /uL (622-2402) Percent CD4 Cells 56.5 % (30.8-58.5) Absolute CD4 Count 1243 /uL (359-1519) T-Lymphocyte CD4/CD8 Ratio 4.25 (0.92-3.72) H Percent CD8 Cells 13.3 % (12.0-35.5) Absolute CD8 Count 293 /uL (109-897) HIV-1 RNA (PCR) log10 Value Pending HIV-1 RNA Ultraquantitative (PCR) Pending HIV (1&2) Antibody Rapid Negative (NEGATIVE) Prothrombin Time 10.2 SEC (9.30-11.50) Prothromb Time International Ratio 1.0 (0.9-1.1) Cryptococcus Antigen Pending Sodium Level 138 MMOL/L (136-145) Potassium Level 3.9 MMOL/L (3.5-5.1) Chloride Level 102 MMOL/L (98-107) Carbon Dioxide Level 29 MMOL/L (21-32) Anion Gap 7 mmol/L (5-15) Blood Urea Nitrogen 25 mg/dL (7-18) H Creatinine 1.0 MG/DL (0.55-1.30) Estimat Glomerular Filtration Rate mL/min (>60) Glucose Level 94 MG/DL (74-106) Calcium Level 8.7 MG/DL (8.5-10.1) Height (Feet): 5 Height (Inches): 5.00 Weight (Pounds): 134 Medications Current Medications Medications (Trade) Dose Ordered Sig/Radha Route PRN Reason Start Time Stop Time Status Last Admin Dose Admin Amantadine HCl (Symmetrel) 100 mg BID ORAL 04/05/19 09:00 05/05/19 08:59 04/06/19 09:03 Aspirin (Ecotrin) 81 mg DAILY ORAL 04/03/19 09:00 05/03/19 08:59 04/06/19 09:03 Atorvastatin Calcium (Lipitor) 10 mg BEDTIME ORAL 04/03/19 21:00 05/03/19 20:59 04/05/19 21:10 Docusate Sodium (Colace) 100 mg DAILY ORAL 04/05/19 09:00 05/05/19 08:59 04/06/19 09:03 Losartan Potassium (Cozaar) 50 mg BID ORAL 04/04/19 18:00 05/04/19 17:59 04/06/19 09:03 Patient Own Medication (Patient's Own Med) 1 ea DAILY ORAL 04/05/19 09:00 05/05/19 08:59 04/06/19 09:04 Patient Own Medication (Patient's Own Med) 1 ea DAILY ORAL 04/05/19 09:00 05/05/19 08:59 04/06/19 09:04 Patient Own Medication (Patient's Own Med) 1 ea DAILY ORAL 04/05/19 09:00 05/05/19 08:59 04/06/19 09:05 Patient Own Medication (Patient's Own Med) 1 ea QID ORAL 04/05/19 09:00 05/05/19 08:59 04/06/19 12:36 Solifenacin (Vesicare) 10 mg DAILY ORAL 04/05/19 09:00 05/05/19 08:59 04/06/19 09:03 Assessment/Plan Problem List: (1) Dehydration ICD Codes: E86.0 - Dehydration SNOMED: 65228530 (2) Parkinson disease ICD Codes: G20 - Parkinson's disease SNOMED: 28740488, 383132088 (3) Cervical spine arthritis ICD Codes: M47.812 - Spondylosis without myelopathy or radiculopathy, cervical region SNOMED: 506911647, 069354553 (4) Frequent falls ICD Codes: R29.6 - Repeated falls SNOMED: 864286502 (5) Skin tear of right elbow without complication Assessment & Plan: This is a 78-year-old male with bilateral elbow laceration/ bruises from multiple falls. Patient is developed some area of his eschar tissue with slow healing. No signs of active infection. No acute surgical intervention recommended. no active infection slow healing would allow for demarcation prior to debridement Continue with Daily dressing changes okay for emilia or douglasyl okay to d/c from surgical standpoint. outpatient wound care follow up with pcp, surgeon, or wound care center thank you ICD Codes: S51.011A - Laceration without foreign body of right elbow, initial encounter SNOMED: 128356981, 316204344 (6) Skin tear of left upper extremity ICD Codes: S41.112A - Laceration without foreign body of left upper arm, initial encounter SNOMED: 234112264, 196818109 (7) Fall ICD Codes: W19.XXXA - Unspecified fall, initial encounter SNOMED: 3455629, 793167496 Erik Robledo Apr 06, 2019 15:43
--- NOTE | 2019-04-06 17:09 | Neurology Progress Note ---
Interim History Interim History Events: This visit was performed on April 06, [address] Daniel Kimble. Objective Physical Exam Last Vital Signs Date Time Temp Pulse Resp B/P (MAP) Pulse Ox O2 Delivery O2 Flow Rate FiO2 04/06/19 12:00 97.5 72 20 117/62 (80) 97 04/06/19 09:00 Room Air Laboratory Tests Test 04/05/19 19:35 04/06/19 06:40 Prothrombin Time 10.2 SEC (9.30-11.50) Prothromb Time International Ratio 1.0 (0.9-1.1) Cryptococcus Antigen Pending White Blood Count 4.6 K/UL (4.8-10.8) L Red Blood Count 4.08 M/UL (4.70-6.10) L Hemoglobin 13.5 G/DL (14.2-18.0) L Hematocrit 38.3 % (42.0-52.0) L Mean Corpuscular Volume 94 FL (80-99) Mean Corpuscular Hemoglobin 33.1 PG (27.0-31.0) H Mean Corpuscular Hemoglobin Concent 35.2 G/DL (32.0-36.0) Red Cell Distribution Width 12.5 % (11.6-14.8) Platelet Count 156 K/UL (150-450) Mean Platelet Volume 8.5 FL (6.5-10.1) Neutrophils (%) (Auto) 64.4 % (45.0-75.0) Lymphocytes (%) (Auto) 23.4 % (20.0-45.0) Monocytes (%) (Auto) 7.5 % (1.0-10.0) Eosinophils (%) (Auto) 3.9 % (0.0-3.0) H Basophils (%) (Auto) 0.8 % (0.0-2.0) Sodium Level 138 MMOL/L (136-145) Potassium Level 3.9 MMOL/L (3.5-5.1) Chloride Level 102 MMOL/L (98-107) Carbon Dioxide Level 29 MMOL/L (21-32) Anion Gap 7 mmol/L (5-15) Blood Urea Nitrogen 25 mg/dL (7-18) H Creatinine 1.0 MG/DL (0.55-1.30) Estimat Glomerular Filtration Rate mL/min (>60) Glucose Level 94 MG/DL (74-106) Calcium Level 8.7 MG/DL (8.5-10.1) Impression/Recommendations Problems: (1) Dehydration (2) Parkinson disease (3) Cervical spine arthritis (4) Frequent falls (5) Skin tear of right elbow without complication (6) Skin tear of left upper extremity (7) Fall Daphne Mayo N.P. Apr 06, 2019 17:09
--- NOTE | 2019-04-06 19:22 | NUR ---
HAND-OFF: Report given to JAYLENE Duarte.
--- NOTE | 2019-04-06 19:31 | NUR ---
NURSE NOTES: Received patient from JAYLENE Farr. Patient is alert, awake, and verbally responsive to let his need known. Patient is breathing evenly and unlabored on room air without signs of discomfort, distress, or SOB noted. No signs of pain noted at this time. IV on RAC intact. Patient's bed is placed at the lowest level with alarm and brakes on. Side rails are up x2 for safety measures. Call light is placed within reach. Will continue to monitor and provide care as ordered.
--- NOTE | 2019-04-06 22:03 | General Progress Note ---
Assessment/Plan Assessment/Plan: 78 year old male with PMH of parkinsons, HTN, and dementia presented with complaints of multiple falls. #Frequent falls -fall precautions -PT/OT -Likely will need placement #Nonhealing wounds -cont wound care -Surgery consulted #Prelim HIV + -Confirmatory test NEGATIVE -ID consult apprecaited #Recent head trauma -Head CT unremarkbale #HTN -Restart CLINIC DIRECTOR meds as needed #Dementia -Neurology consult appreciated #Dispo: -Likely dc to SNF in AM Code: Redevelopment Manager of note may not reflect time of encounter Subjective Date patient seen: Apr 06, 2019 Allergies: Coded Allergies: No Known Allergies (Unverified , 04/02/19) All Systems: reviewed and negative except above Subjective No acute overnight events, HIV negative. pt with no complaints, Objective Last 24 Hour Vital Signs Date Time Temp Pulse Resp B/P (MAP) Pulse Ox O2 Delivery O2 Flow Rate FiO2 04/06/19 20:00 97.0 73 20 108/63 (78) 96 04/06/19 17:32 129/73 04/06/19 17:26 98.0 75 20 129/73 (91) 97 04/06/19 17:23 98.0 86 18 148/85 (106) 100 04/06/19 16:00 98.0 86 18 148/85 (106) 100 04/06/19 16:00 98.0 75 20 129/73 (91) 97 04/06/19 16:00 98.0 75 20 129/73 (91) 97 04/06/19 12:00 97.5 72 20 117/62 (80) 97 04/06/19 09:03 121/63 04/06/19 09:00 Room Air 04/06/19 08:00 98.0 70 20 121/63 (82) 96 04/06/19 04:00 97.9 64 18 132/74 (93) 98 04/06/19 00:03 98.8 65 16 114/62 (79) 98 Intake and Output 04/05/19 04/06/19 19:00 07:00 Intake Total 300 ml Output Total 1200 ml Balance 300 ml -1200 ml Intake Oral 300 ml Output Urine Total 1200 ml # Voids 1 Laboratory Tests 04/06/19 06:40: White Blood Count 4.6L, Red Blood Count 4.08L, Hemoglobin 13.5L, Hematocrit 38.3L, Mean Corpuscular Volume 94, Mean Corpuscular Hemoglobin 33.1H, Mean Corpuscular Hemoglobin Concent 35.2, Red Cell Distribution Width 12.5, Platelet Count 156, Mean Platelet Volume 8.5, Neutrophils (%) (Auto) 64.4, Lymphocytes (% ) (Auto) 23.4, Monocytes (%) (Auto) 7.5, Eosinophils (%) (Auto) 3.9H, Basophils (%) (Auto) 0.8, Sodium Level 138, Potassium Level 3.9, Chloride Level 102, Carbon Dioxide Level 29, Anion Gap 7, Blood Urea Nitrogen 25H, Creatinine 1.0, Estimat Glomerular Filtration Rate , Glucose Level 94, Calcium Level 8.7 04/06/19 18:20: Ammonia 20, Vitamin B12 Level 378, Folate 15.5 Height (Feet): 5 Height (Inches): 5.00 Weight (Pounds): 134 Objective General Appearance: WD/WN, no apparent distress Lines, tubes and drains: peripheral HEENT: normocephalic, atraumatic, anicteric Neck: non-tender, normal alignment Respiratory/Chest: chest wall non-tender, lungs clear Cardiovascular/Chest: normal peripheral pulses Abdomen: normal bowel sounds, non tender, soft Extremities: normal range of motion Skin Exam: other - excoriations on b/l UE Neurologic: felt finishing supervisor II-XII grossly normal Musculoskeletal: normal muscle bulk Sharon De La Cruz MD Apr 06, 2019 22:03
--- NOTE | 2019-04-06 22:49 | NUR ---
NURSE NOTES: Reminded Humberto from pharmacy about the patient's own medication Carbidopa 37.5mg, Levodopa 150mg, Entacapone 200mg Oral tablet. There was only one tablet left for him to take his 2100 dose. Medication container empty. Pharmacy will bring it up in the morning before the patient's morning dose.
[2019-04-07] VITALS: BP 118/70
[2019-04-07 04:00] VITALS: BP 123/73
[2019-04-07 06:40] LABS: BASOPHILS % (AUTO) 0.5 % (0.0-2.0); EOSINOPHILS % (AUTO) 3.2 % (0.0-3.0); HEMATOCRIT 33.1 % (42.0-52.0); HEMOGLOBIN 11.3 G/DL (14.2-18.0); LYMPHOCYTES % (AUTO) 24.7 % (20.0-45.0); MEAN CORPUSCULAR VOLUME 96 FL (80-99); MONOCYTES % (AUTO) 9.8 % (1.0-10.0); NEUTROPHILS % (AUTO) 61.8 % (45.0-75.0); PLATELET COUNT 157 K/UL (150-450); RED BLOOD COUNT 3.46 M/UL (4.70-6.10); RED CELL DISTRIBUTION WIDTH 12.3 % (11.6-14.8)
[2019-04-07 06:58] LABS: ANION GAP 6 mmol/L (5-15); BLOOD UREA NITROGEN 27 mg/dL (7-18); CALCIUM 8.7 MG/DL (8.5-10.1); CARBON DIOXIDE 28 MMOL/L (21-32); CHLORIDE 107 MMOL/L (98-107); CREATININE 1.1 MG/DL (0.55-1.30); POTASSIUM 4.4 MMOL/L (3.5-5.1); SODIUM 141 MMOL/L (136-145)
--- NOTE | 2019-04-07 07:28 | NUR ---
HAND-OFF: Report given to JAYLENE Crowley. Patient in stable condition.
--- NOTE | 2019-04-07 07:33 | NUR ---
NURSE NOTES: Pt resting in bed. A/O x 4, calm and cooperative. Denies pain. Multiple bruises Anatoliy extremities. Dressing on RUE, CDI. tolerating diet. Urinal within reach. bed alarm on. fall precaution maintained. call light within reach. will continue to monitor.
[2019-04-07 09:00] VITALS: BP 110/63
[2019-04-07] MEDS: ENTACAPONE ORAL SCH ×3 (09:25→17:20)
[2019-04-07] MEDS: LEVODOPA ORAL SCH ×3 (09:25→17:20)
[2019-04-07] MEDS: CARBIDOPA ORAL SCH ×3 (09:25→17:20)
[2019-04-07] MEDS: MYRBETRIQ 50 MG ORAL SCH (09:25)
[2019-04-07] MEDS: ROPINIROLE 12 MG ORAL SCH (09:26)
[2019-04-07] MEDS: RASAGILINE 1 MG ORAL SCH (09:26)
[2019-04-07] MEDS: Docusate 100mg cap ORAL SCH ×2 (09:27→09:31)
[2019-04-07] MEDS: Losartan 50mg tab ORAL SCH ×2 (09:27→17:19)
[2019-04-07] MEDS: Aspirin EC 81mg tab ORAL SCH (09:28)
[2019-04-07] MEDS: Solifenacin 10mg tab ORAL SCH (09:28)
[2019-04-07] MEDS: Amantadine 100mg cap ORAL SCH ×2 (09:29→17:19)
[2019-04-07 12:00] VITALS: BP 115/66
--- NOTE | 2019-04-07 12:01 | Surgery Progress Note ---
Surgery Progress Note Subjective Additional Comments no acute events. up in chair. slowly working with PT comfortable. Objective Last 24 Hour Vital Signs Date Time Temp Pulse Resp B/P (MAP) Pulse Ox O2 Delivery O2 Flow Rate FiO2 04/07/19 09:27 110/63 04/07/19 09:00 98.1 110/63 (79) 04/07/19 09:00 Room Air 04/07/19 04:00 97.4 69 20 123/73 (90) 96 04/07/19 00:00 98.0 74 20 118/70 (86) 97 04/06/19 21:00 Room Air 04/06/19 20:00 97.0 73 20 108/63 (78) 96 04/06/19 17:32 129/73 04/06/19 17:26 98.0 75 20 129/73 (91) 97 04/06/19 17:23 98.0 86 18 148/85 (106) 100 04/06/19 16:00 98.0 86 18 148/85 (106) 100 04/06/19 16:00 98.0 75 20 129/73 (91) 97 04/06/19 16:00 98.0 75 20 129/73 (91) 97 I&O Intake and Output 04/06/19 04/07/19 18:59 06:59 Intake Total 480 ml Output Total 1600 ml 2000 ml Balance -1120 ml -2000 ml Intake Oral 480 ml Output Urine Total 1600 ml 2000 ml # Voids 2 4 Dressing: saturated Wound: other Drains: other Cardiovascular: RSR Respiratory: decreased breath sounds Abdomen: soft, present bowel sounds, non-distended Extremities: no cyanosis Laboratory Tests Test 04/06/19 18:20 04/07/19 05:35 Ammonia 20 umol/L (11-32) Vitamin B12 Level 378 PG/ML (193-986) Folate 15.5 NG/ML (8.6-58.9) White Blood Count 5.0 K/UL (4.8-10.8) Red Blood Count 3.46 M/UL (4.70-6.10) L Hemoglobin 11.3 G/DL (14.2-18.0) L Hematocrit 33.1 % (42.0-52.0) L Mean Corpuscular Volume 96 FL (80-99) Mean Corpuscular Hemoglobin 32.5 PG (27.0-31.0) H Mean Corpuscular Hemoglobin Concent 34.0 G/DL (32.0-36.0) Red Cell Distribution Width 12.3 % (11.6-14.8) Platelet Count 157 K/UL (150-450) Mean Platelet Volume 8.2 FL (6.5-10.1) Neutrophils (%) (Auto) 61.8 % (45.0-75.0) Lymphocytes (%) (Auto) 24.7 % (20.0-45.0) Monocytes (%) (Auto) 9.8 % (1.0-10.0) Eosinophils (%) (Auto) 3.2 % (0.0-3.0) H Basophils (%) (Auto) 0.5 % (0.0-2.0) Sodium Level 141 MMOL/L (136-145) Potassium Level 4.4 MMOL/L (3.5-5.1) Chloride Level 107 MMOL/L (98-107) Carbon Dioxide Level 28 MMOL/L (21-32) Anion Gap 6 mmol/L (5-15) Blood Urea Nitrogen 27 mg/dL (7-18) H Creatinine 1.1 MG/DL (0.55-1.30) Estimat Glomerular Filtration Rate mL/min (>60) Glucose Level 91 MG/DL (74-106) Calcium Level 8.7 MG/DL (8.5-10.1) Plan Problems: (1) Dehydration (2) Parkinson disease (3) Cervical spine arthritis (4) Frequent falls (5) Skin tear of right elbow without complication Assessment & Plan: This is a 78-year-old male with bilateral elbow laceration/ bruises from multiple falls. Patient is developed some area of his eschar tissue with slow healing. No signs of active infection. No acute surgical intervention recommended. no active infection slow healing would allow for demarcation prior to debridement Continue with Daily dressing changes okay for emilia or tripp samuels to d/c from surgical standpoint. outpatient wound care follow up with pcp, surgeon, or wound care center spoke with patient regards to gait. cont with PT. needs to be careful. if head injury needs to be evaluated. patient aware thank you (6) Skin tear of left upper extremity (7) Fall Erik Robledo Apr 07, 2019 12:01
--- NOTE | 2019-04-07 13:43 | Hematology/Onc Progress Note ---
Assessment/Plan Assessment/Plan Assessment/Plan ASSESSMENT AND REC'S 1. Prostate Ca --> followed by outpatient Urologist Santos Lr, I have called his office and have requested last prognosis requiring treatment and last PSA level. --> We will check PSA level at 0.85 --> Pt reports no history of chemo or radiation, he does report having prostate surgery unable to recall details. 2. Thrombocytopenia - potential causes multifactorial, evaluate liver and viral etiologies to begin, also could be related to underlying medications patient has received. --> Hep panel and HIV ordered - both are negative --> US abd to evaluate for cirrhosis and hsm ordered - unremarkable --> Peripheral smear ordered to evaluate for blasts /schistocytes, none noted --> abx and other meds have been reviewed --> Plt trend: 156-->157 --> ok for ppx if plt >50k w/ either heparin or lovenox --> Transfuse if Plt < 20k and fever, or if Plt < 10k without fever 3. Leukopenia--multiple etiologies could be related to Prostate Ca or underlying liver disease, medication-induced, --> Currently resolved --> peripheral smear has been reviewed --> Medications have been reviewed --> Continue to monitor for improvement, trend cbc --> Hep panel and HIV have been ordered - both negative --> US abd ordered to r/o cirrhosis and hepatosplenomegaly - unremarkable --> reverse isolation if ANC is <2000 --> Give neupogen if ANC <1000 --> WBC trend: 4.6-->5 4. Anemia of chronic disease due to underlying chronic medical issues, multifactorial --> Anemia workup has been reviewed. Ferritin 90 --> Stool OB negative --> No evidence of hemolysis is noted, peripheral smear has been reviewed. --> Hgb goal >7. Transfuse prn. --> HGB trend: 10.7-->13.5-->11.3 --> Epogen or iron at this time is not particularly indicated --> Medications have been reviewed, med recon Eliquis but patient denies taking eliquis also have discussed with bedside RN 5. Parkinson's Disease 6. Dementia 7. Multiple Falls --> CT head no acute pathology noted 8. Moderate spondylosis --> CT Cervical Spine reviewed The timing of this note does not necessarily reflect the time of the patient was seen. GREATLY APPRECIATE CONSULTATION Subjective Allergies: Coded Allergies: No Known Allergies (Unverified , 04/02/19) Subjective 04/04: Pt is awake in bed resting, alert. Afebrile, no sob. 04/05: Pt in bed, alert, oriented, verbally responsive. No respiratory distress noted, no c/o pain at this time. 04/06: Pt in bed, alert and oriented, verbally responsive. No respiratory distress noted on room air. No c/o pain at this time. 04/07: Pt resting in bed, calm and cooperative. Labs reviewed. Objective Objective Current Medications Medications (Trade) Dose Ordered Sig/Radha Route PRN Reason Start Time Stop Time Status Last Admin Dose Admin Amantadine HCl (Symmetrel) 100 mg BID ORAL 04/05/19 09:00 05/05/19 08:59 04/07/19 09:29 Aspirin (Ecotrin) 81 mg DAILY ORAL 04/03/19 09:00 05/03/19 08:59 04/07/19 09:28 Atorvastatin Calcium (Lipitor) 10 mg BEDTIME ORAL 04/03/19 21:00 05/03/19 20:59 04/06/19 20:26 Docusate Sodium (Colace) 100 mg DAILY ORAL 04/05/19 09:00 05/05/19 08:59 04/07/19 09:31 Losartan Potassium (Cozaar) 50 mg BID ORAL 04/04/19 18:00 05/04/19 17:59 04/07/19 09:27 Patient Own Medication (Patient's Own Med) 1 ea DAILY ORAL 04/05/19 09:00 05/05/19 08:59 04/07/19 09:25 Patient Own Medication (Patient's Own Med) 1 ea DAILY ORAL 04/05/19 09:00 05/05/19 08:59 04/07/19 09:26 Patient Own Medication (Patient's Own Med) 1 ea DAILY ORAL 04/05/19 09:00 05/05/19 08:59 04/07/19 09:26 Patient Own Medication (Patient's Own Med) 1 ea QID ORAL 04/05/19 09:00 05/05/19 08:59 04/07/19 12:41 Solifenacin (Vesicare) 10 mg DAILY ORAL 04/05/19 09:00 05/05/19 08:59 04/07/19 09:28 Last 24 Hour Vital Signs Date Time Temp Pulse Resp B/P (MAP) Pulse Ox O2 Delivery O2 Flow Rate FiO2 04/07/19 12:00 98.0 18 115/66 (82) 98 04/07/19 09:27 110/63 04/07/19 09:00 98.1 110/63 (79) 04/07/19 09:00 Room Air 04/07/19 04:00 97.4 69 20 123/73 (90) 96 04/07/19 00:00 98.0 74 20 118/70 (86) 97 04/06/19 21:00 Room Air 04/06/19 20:00 97.0 73 20 108/63 (78) 96 04/06/19 17:32 129/73 04/06/19 17:26 98.0 75 20 129/73 (91) 97 04/06/19 17:23 98.0 86 18 148/85 (106) 100 04/06/19 16:00 98.0 86 18 148/85 (106) 100 04/06/19 16:00 98.0 75 20 129/73 (91) 97 04/06/19 16:00 98.0 75 20 129/73 (91) 97 04/06/19 12:00 97.5 72 20 117/62 (80) 97 04/06/19 09:03 121/63 04/06/19 09:00 Room Air 04/06/19 08:00 98.0 70 20 121/63 (82) 96 04/06/19 04:00 97.9 64 18 132/74 (93) 98 04/06/19 00:03 98.8 65 16 114/62 (79) 98 04/05/19 20:09 Room Air 04/05/19 20:00 97.6 70 18 104/68 (80) 97 04/05/19 17:45 106/65 04/05/19 16:00 96.7 69 20 106/65 (79) 100 Intake and Output 04/06/19 04/07/19 18:59 06:59 Intake Total 480 ml Output Total 1600 ml 2000 ml Balance -1120 ml -2000 ml Intake Oral 480 ml Output Urine Total 1600 ml 2000 ml # Voids 2 4 Labs Test 04/05/19 16:45 04/05/19 19:35 04/06/19 06:40 04/06/19 18:20 White Blood Count 4.9 K/UL (4.8-10.8) 4.6 K/UL (4.8-10.8) Red Blood Count 3.55 M/UL (4.70-6.10) 4.08 M/UL (4.70-6.10) Hemoglobin 11.6 G/DL (14.2-18.0) 13.5 G/DL (14.2-18.0) Hematocrit 33.7 % (42.0-52.0) 38.3 % (42.0-52.0) Mean Corpuscular Volume 95 FL (80-99) 94 FL (80-99) Mean Corpuscular Hemoglobin 32.6 PG (27.0-31.0) 33.1 PG (27.0-31.0) Mean Corpuscular Hemoglobin Concent 34.3 G/DL (32.0-36.0) 35.2 G/DL (32.0-36.0) Red Cell Distribution Width 12.1 % (11.6-14.8) 12.5 % (11.6-14.8) Platelet Count 129 K/UL (150-450) 156 K/UL (150-450) Mean Platelet Volume 7.8 FL (6.5-10.1) 8.5 FL (6.5-10.1) Neutrophils (%) (Auto) 65.9 % (45.0-75.0) 64.4 % (45.0-75.0) Lymphocytes (%) (Auto) 21.6 % (20.0-45.0) 23.4 % (20.0-45.0) Monocytes (%) (Auto) 9.4 % (1.0-10.0) 7.5 % (1.0-10.0) Eosinophils (%) (Auto) 2.2 % (0.0-3.0) 3.9 % (0.0-3.0) Basophils (%) (Auto) 0.8 % (0.0-2.0) 0.8 % (0.0-2.0) Differential Total Cells Counted 100 Neutrophils % (Manual) 67 % (45-75) Lymphocytes % (Manual) 25 % (20-45) Monocytes % (Manual) 7 % (1-10) Eosinophils % (Manual) 1 % (0-3) Basophils % (Manual) 0 % (0-2) Band Neutrophils 0 % (0-8) Lymphocytes 23 % (Not Estab.) Nucleated Red Blood Cells (.) Platelet Estimate Decreased Platelet Morphology Normal Hypochromasia 1+ Reticulocyte Count 0.3 % (0.5-2.0) Sickle Cell Screen Negative (Negative) Iron Level 53 ug/dL (50-175) Total Iron Binding Capacity 227 ug/dL (250-450) Percent Iron Saturation 23 % (15-50) Unsaturated Iron Binding 174 ug/dL (112-346) Ferritin 90 NG/ML (8-388) Lactate Dehydrogenase 225 U/L (81-234) Carcinoembryonic Antigen 2.6 ng/mL (0.0-4.7) Thyroid Stimulating Hormone (TSH) 2.426 uiU/mL (0.358-3.740) Absolute Lymphocytes (Cell Immunity 2.2 x10E3/uL (0.7-3.1) Percent CD3 Cells 69.1 % (57.5-86.2) Absolute CD3 Count 1520 /uL (622-2402) Percent CD4 Cells 56.5 % (30.8-58.5) Absolute CD4 Count 1243 /uL (359-1519) T-Lymphocyte CD4/CD8 Ratio 4.25 (0.92-3.72) Percent CD8 Cells 13.3 % (12.0-35.5) Absolute CD8 Count 293 /uL (109-897) HIV (1&2) Antibody Rapid Negative (NEGATIVE) Prothrombin Time 10.2 SEC (9.30-11.50) Prothromb Time International Ratio 1.0 (0.9-1.1) Cryptococcus Antigen Negative (Negative) Sodium Level 138 MMOL/L (136-145) Potassium Level 3.9 MMOL/L (3.5-5.1) Chloride Level 102 MMOL/L (98-107) Carbon Dioxide Level 29 MMOL/L (21-32) Anion Gap 7 mmol/L (5-15) Blood Urea Nitrogen 25 mg/dL (7-18) Creatinine 1.0 MG/DL (0.55-1.30) Estimat Glomerular Filtration Rate mL/min (>60) Glucose Level 94 MG/DL (74-106) Calcium Level 8.7 MG/DL (8.5-10.1) Ammonia 20 umol/L (11-32) Vitamin B12 Level 378 PG/ML (193-986) Folate 15.5 NG/ML (8.6-58.9) Test 04/07/19 05:35 White Blood Count 5.0 K/UL (4.8-10.8) Red Blood Count 3.46 M/UL (4.70-6.10) Hemoglobin 11.3 G/DL (14.2-18.0) Hematocrit 33.1 % (42.0-52.0) Mean Corpuscular Volume 96 FL (80-99) Mean Corpuscular Hemoglobin 32.5 PG (27.0-31.0) Mean Corpuscular Hemoglobin Concent 34.0 G/DL (32.0-36.0) Red Cell Distribution Width 12.3 % (11.6-14.8) Platelet Count 157 K/UL (150-450) Mean Platelet Volume 8.2 FL (6.5-10.1) Neutrophils (%) (Auto) 61.8 % (45.0-75.0) Lymphocytes (%) (Auto) 24.7 % (20.0-45.0) Monocytes (%) (Auto) 9.8 % (1.0-10.0) Eosinophils (%) (Auto) 3.2 % (0.0-3.0) Basophils (%) (Auto) 0.5 % (0.0-2.0) Sodium Level 141 MMOL/L (136-145) Potassium Level 4.4 MMOL/L (3.5-5.1) Chloride Level 107 MMOL/L (98-107) Carbon Dioxide Level 28 MMOL/L (21-32) Anion Gap 6 mmol/L (5-15) Blood Urea Nitrogen 27 mg/dL (7-18) Creatinine 1.1 MG/DL (0.55-1.30) Estimat Glomerular Filtration Rate mL/min (>60) Glucose Level 91 MG/DL (74-106) Calcium Level 8.7 MG/DL (8.5-10.1) Height (Feet): 5 Height (Inches): 5.00 Weight (Pounds): 134 Objective Physical Exam General Appearance: , Chronically Ill appearing multiple dressings on BUE Head: atraumatic ENT: normal ENT inspection, hearing grossly normal, normal voice Neck: normal inspection, supple, no bony tend, limited range of motion Respiratory: normal inspection, lungs clear, normal breath sounds, no respiratory distress, no retraction, no wheezing Cardiovascular: regular rate, rhythm, no edema Gastrointestinal: normal inspection, normal bowel sounds, non tender, soft, no guarding, no hernia Genitourinary: no CVA tenderness Musculoskeletal: decreased range of motion - decreased rOM of neck and left shoulder Neurologic: normal inspection, alert, oriented x3, responsive, administrative resources associate III-XII nml as tested, speech normal, other - muscular atrophy bilateral quadriceps Psychiatric: normal inspection, judgement/insight normal, mood/affect normal Skin: normal color, other - multiple superficial skin tears to extremities and steristrips to left foreaem Francis Keane MD Apr 07, 2019 13:43
--- NOTE | 2019-04-07 14:21 | NUR ---
MATERIAL MANAGER NOTE PLACED CALL TO PENDING DC ORDER
--- NOTE | 2019-04-07 14:43 | Infectious Diseases Prog Note ---
Assessment/Plan Assessment/Plan ASSESSMENT AND PLAN: 1. Doubt HIV infection - confirmatory test negative, f/u rapid screen negative, [id number] 2. Falls. 3. Syncope. 4. Pancytopenia. 5. Anemia and thrombocytopenia. 6. Dementia. 7. Parkinson's. 8. Possible dyslipidemia. 9. Hypertension. 10. Prostate cancer. 11. No known drug allergies. 12. Social history is negative. 13. Family history is noncontributory. 14. MAR is noted. 15. Case was discussed with RN. 16. Case was discussed with Dr. Sharon Schneider. 17. Notes and records were noted. Orders were entered. 18. Continue treatment per primary consultants. 19. skin care per protocol 20. d/w Dr. De La Cruz Subjective Constitutional: Denies: fever HEENT: Denies: congestion Respiratory: Denies: shortness of breath Cardiovascular: Denies: chest pain Gastrointestinal/Abdominal: Denies: nausea, vomiting, diarrhea Genitourinary: Denies: dysuria, hematuria Neurologic: Denies: headache, numbness Psychiatric: Denies: depression Skin: Denies: rash Hematologic: Denies: bleeding Musculoskeletal: Denies: pain Allergies: Coded Allergies: No Known Allergies (Unverified , 04/02/19) Objective Vital Signs Last 24 Hour Vital Signs Date Time Temp Pulse Resp B/P (MAP) Pulse Ox O2 Delivery O2 Flow Rate FiO2 04/07/19 12:00 98.0 18 115/66 (82) 98 04/07/19 09:27 110/63 04/07/19 09:00 98.1 110/63 (79) 04/07/19 09:00 Room Air 04/07/19 04:00 97.4 69 20 123/73 (90) 96 04/07/19 00:00 98.0 74 20 118/70 (86) 97 04/06/19 21:00 Room Air 04/06/19 20:00 97.0 73 20 108/63 (78) 96 04/06/19 17:32 129/73 04/06/19 17:26 98.0 75 20 129/73 (91) 97 04/06/19 17:23 98.0 86 18 148/85 (106) 100 04/06/19 16:00 98.0 86 18 148/85 (106) 100 04/06/19 16:00 98.0 75 20 129/73 (91) 97 04/06/19 16:00 98.0 75 20 129/73 (91) 97 Height (Feet): 5 Height (Inches): 5.00 Weight (Pounds): 134 General Appearance: no acute distress HEENT: normocephalic, atraumatic, anicteric, mucous membranes moist Respiratory/Chest: lungs clear, normal breath sounds, no respiratory distress, no accessory muscle use Cardiovascular: normal rate, regular rhythm, no gallop/murmur, no JVD Abdomen: normal bowel sounds, soft, non tender, no organomegaly, non distended Genitourinary: other - no wallace Extremities: no cyanosis Skin: no rash Neurologic/Psychiatric: registered nurse surgical services II-XII grossly normal, alert, responsive Lymphatic: no neck adenopathy Musculoskeletal: no effusion Objective Comparison: None Chest x-ray - A single view chest radiograph was obtained. Findings: No definite infiltrate or pulmonary vascular congestion identified. The heart is normal size. The aorta is mildly enlarged consistent with atherosclerotic vascular disease. The bones are osteopenic. Impression: No acute disease Laboratory Tests Test 04/06/19 18:20 04/07/19 05:35 Ammonia 20 umol/L (11-32) Vitamin B12 Level 378 PG/ML (193-986) Folate 15.5 NG/ML (8.6-58.9) White Blood Count 5.0 K/UL (4.8-10.8) Red Blood Count 3.46 M/UL (4.70-6.10) L Hemoglobin 11.3 G/DL (14.2-18.0) L Hematocrit 33.1 % (42.0-52.0) L Mean Corpuscular Volume 96 FL (80-99) Mean Corpuscular Hemoglobin 32.5 PG (27.0-31.0) H Mean Corpuscular Hemoglobin Concent 34.0 G/DL (32.0-36.0) Red Cell Distribution Width 12.3 % (11.6-14.8) Platelet Count 157 K/UL (150-450) Mean Platelet Volume 8.2 FL (6.5-10.1) Neutrophils (%) (Auto) 61.8 % (45.0-75.0) Lymphocytes (%) (Auto) 24.7 % (20.0-45.0) Monocytes (%) (Auto) 9.8 % (1.0-10.0) Eosinophils (%) (Auto) 3.2 % (0.0-3.0) H Basophils (%) (Auto) 0.5 % (0.0-2.0) Sodium Level 141 MMOL/L (136-145) Potassium Level 4.4 MMOL/L (3.5-5.1) Chloride Level 107 MMOL/L (98-107) Carbon Dioxide Level 28 MMOL/L (21-32) Anion Gap 6 mmol/L (5-15) Blood Urea Nitrogen 27 mg/dL (7-18) H Creatinine 1.1 MG/DL (0.55-1.30) Estimat Glomerular Filtration Rate mL/min (>60) Glucose Level 91 MG/DL (74-106) Calcium Level 8.7 MG/DL (8.5-10.1) Current Medications Medications (Trade) Dose Ordered Sig/Radha Route PRN Reason Start Time Stop Time Status Last Admin Dose Admin Amantadine HCl (Symmetrel) 100 mg BID ORAL 04/05/19 09:00 05/05/19 08:59 04/07/19 09:29 Aspirin (Ecotrin) 81 mg DAILY ORAL 04/03/19 09:00 05/03/19 08:59 04/07/19 09:28 Atorvastatin Calcium (Lipitor) 10 mg BEDTIME ORAL 04/03/19 21:00 05/03/19 20:59 04/06/19 20:26 Docusate Sodium (Colace) 100 mg DAILY ORAL 04/05/19 09:00 05/05/19 08:59 04/07/19 09:31 Losartan Potassium (Cozaar) 50 mg BID ORAL 04/04/19 18:00 05/04/19 17:59 04/07/19 09:27 Patient Own Medication (Patient's Own Med) 1 ea DAILY ORAL 04/05/19 09:00 05/05/19 08:59 04/07/19 09:25 Patient Own Medication (Patient's Own Med) 1 ea DAILY ORAL 04/05/19 09:00 05/05/19 08:59 04/07/19 09:26 Patient Own Medication (Patient's Own Med) 1 ea DAILY ORAL 04/05/19 09:00 05/05/19 08:59 04/07/19 09:26 Patient Own Medication (Patient's Own Med) 1 ea QID ORAL 04/05/19 09:00 05/05/19 08:59 04/07/19 12:41 Solifenacin (Vesicare) 10 mg DAILY ORAL 04/05/19 09:00 05/05/19 08:59 04/07/19 09:28 Hermes Willis MD Apr 07, 2019 14:43
--- NOTE | 2019-04-07 15:09 | Discharge Instructions ---
Discharge Instructions Discharge Instructions Follow up with: pcp Call MD/Return to Hospital if: febrile, intractable pain, intractable vomiting Services at Discharge: physical therapy Diet: cardiac 2 GM Na, low fat Resume Normal Activity?: Yes Activity: resume normal activities For Congestive Heart Failure Reminder Report to your physician any weight gain of 5 pounds or more in one week. Sharon De La Cruz MD Apr 07, 2019 15:09
--- NOTE | 2019-04-07 15:13 | Discharge Summary ---
Discharge Summary Hospital Course Date of Admission Apr 02, 2019 at 20:57 Date of Discharge 04/07/19 Admitting Diagnosis frequent falls HPI Mukul Arroyo is a 78 year old male who was admitted on Apr 02, 2019 at 20:57 for Frequent Falls 78 year old male with PMH of parkinsons, dementia, HTN, prostate CA presented with complaints of multiple falls. Pt states he had fallen 2 times at a friends constitution party over the weekend, states he struck his head on a bathtub, - LOC. Pt states he has fallen at least 5 times over past week. Pt lives by himself in a 2 story home and has no help. Pt would like to ask his friends for help vs bring placed in SNF. pt denies fevers, chills, N/V/C/D, urinary complaints or abdominal complaints. Patient is followed by neurologist as well as urologist for his prostate ca Dr.M. Lemus in [place]. He has not received Chemo or radiation and he does not recall his last PSA level. He states he was diagnosed 1 year ago. Heme/ Onc was consulted for low wbc count, pt also has thrombocytopenia. Hospital Course 78 year old male with PMH of parkinsons, HTN, and dementia presented with complaints of multiple falls. #Frequent falls -fall precautions -discharged to SNF for PT #Nonhealing wounds -cont wound care #Prelim HIV + -Confirmatory test NEGATIVE -ID consult apprecaited #Recent head trauma -Head CT unremarkbale #HTN -Restart [employer] meds as needed #Dementia -Neurology consult appreciated Code: [employer] Buildings of note may not reflect time of encounter Discharge Condition Upon Discharge: improving Discharge Disposition Patient was discharged to SNF Discharge Instructions Discharge Instructions Follow up with: pcp Call MD/Return to Hospital if: febrile, intractable pain, intractable vomiting Services Upon Discharge: physical therapy Activity: resume normal activities Sharon De La Cruz MD Apr 07, 2019 15:13
--- NOTE | 2019-04-07 15:19 | NUR ---
DISCHARGE PLANNED [facility] ROOM [address] SKILLED T [phone] FOR NURSE TO NURSE REPORT [facility] WILL CMM PROGRAMMER AT 1600
[2019-04-07 16:00] VITALS: BP 115/58
--- NOTE | 2019-04-07 16:09 | Cardiology Report ---
APPROVED REPORT EKG Measurement Heart [id number] TN [id number] Normal sinus rhythm with sinus arrhythmia Normal ECG
[2019-04-07 17:19] VITALS: BP 115/58
--- NOTE | 2019-04-07 18:01 | NUR ---
NURSE NOTES: Report given to Rima Domingo ([facility]), spoke with Faustina MARIEE.
--- NOTE | 2019-04-07 18:16 | NUR ---
NURSE NOTES: Discharged pt to SNF. Pt awake, A/O x 4, calm , denies pain. home meds given to pt. family notified. belongings with pt. VSS.
== END 2019-04-07 18:30 | DRG 605 ==
LOC: EDBD 19:49 → EMR 20:15 → 4E 20:57 → EDBEDREQ 21:54 → 4E 22:50
DX: S51.011A Laceration without foreign body of right elbow, initial encounter (principal); D61.818 Other pancytopenia; E86.0 Dehydration; G20 Parkinson's disease; S41.112A Laceration without foreign body of left upper arm, initial encounter; W19.XXXA Unspecified fall, initial encounter; S09.90XA Unspecified injury of head, initial encounter; F02.80 Dementia in other diseases classified elsewhere, unspecified severity, without behavioral disturbance, psychotic disturbance, mood disturbance, and anxiety; I10 Essential (primary) hypertension; R29.6 Repeated falls; D69.6 Thrombocytopenia, unspecified; D63.8 Anemia in other chronic diseases classified elsewhere; C61 Malignant neoplasm of prostate; M46.82 Other specified inflammatory spondylopathies, cervical region; Z91.81 History of falling; Y92.002 Bathroom of unspecified non-institutional (private) residence as the place of occurrence of the external cause
CPT/HCPCS: 36415; 70450; 71045; 72125; 76700; 80048; 80053; 81001; 82140; 82248; 82270; 82378; 82607; 82728; 82746; 83540; 83550; 83615; 83921; 84153; 84443; 84484; 85007; 85025; 85044; 85060; 85610; 85660; 85730; 86360; 86689; 86703; 86705; 86709; 86803; 87340; 87449; 87536; 93005; 99285